=== PATIENT | male | born 1955 | race Caucasian/White ===

== ENCOUNTER 2017-01-09 10:27 | Inpatient (IN) ==
[2017-01-09 10:43] LABS: ABG Base Excess 0.2 MMOL/L (-2.5-2.5); ABG HCO3 24.7 MMOL/L (20-26); ABG Oxygen Saturation 99.7 % (95-100); ABG PH 7.395 (7.35-7.45); ABG TCO2 22.2 MMOL/L (23-27); Allen Test Positive; Pt O2 Delivery Device Ventilator
--- NOTE | 2017-01-09 10:44 | EKG Report ---
Stationary ECG Study [facility] Test Date: 01/09/2017 10:44:54 AM Pat Name: MADDISON BRASHER Department: Room: Gender: M Bond Underwriter: ROHINI Vogel : 1955 Requested by: Prince Mcneil Order Number: [id number] Reading MD: SARAH LUNDBERG Intervals [place] Rate: 82 P: 48 IA: 148 QRS: 70 QRSD: 90 T: 87 QT: 400 QTc: 438 Interpretive Statements SINUS RHYTHM Electronically Signed On 01-09-17 16:33:43 CDT by SARAH LUNDBERG [email or web address]
[2017-01-09] MEDS ORDERED: VECURONIUM 10 MG VIAL IV STA (10:49)
[2017-01-09] MEDS ORDERED: levETIRAcetam 500 MG/5 ML VIAL IV ONE (10:50)
[2017-01-09] MEDS ORDERED: VECURONIUM 10 MG VIAL IV ONE (10:50)
--- NOTE | 2017-01-09 10:51 | Emergency Department Note ---
Manoj Ivy Hilary, am scribing for, and in the presence of, Prince Mcdermott MD 10: 42. Sharron Ivy James D, MD, personally performed the services described in this documentation, ascribed by Meagan Aranda in my presence, and it is both accurate and complete . Arrival - Arrival Chief Complaint: Seizure ED Nursing Triage Note: pt had a sz this am and was taken to [facility]. pt was intubated at [facility] with a 7.5 and 24 at the lip Mode of Arrival: Stretcher Limitations: Altered Mental Status Source: EMS, RN Notes Reviewed - History of Present Illness HPI Narrative: Pt is a 61 y/o white male brought into the ED via EMS from [facility]. HPI is limited due to intubation. Per EMS he had a seizure witnessed by the family and never woke back up. Pt was intubated at [facility] [address] with a 7.5 and 24 at the lip. Pt has a PMHx of MA, CVA, and IDDM. Blood sugar was 31 on the scene and 271 reported in the ED. Onset (ago): hour(s) Allergies/Adverse Reactions: Allergies Allergy/AdvReac Type Severity Reaction Status Date / Time dexamethasone [From Decadron] Allergy Verified 02/11/15 15:47 Penicillins Allergy Verified 02/11/15 15:47 Home Medications: Home Medications Medication Instructions Recorded Confirmed Type Amlodipine Besylate/Benazepril 1 each PO DAILY 02/11/15 02/11/15 History [Lotrel 10-20 mg Capsule] Aspirin Tab 325 mg PO DAILY 02/11/15 02/11/15 History Carvedilol 3.125 mg PO DAILY 02/11/15 02/11/15 History Citalopram [CeleXA] 20 mg PO DAILY 02/11/15 02/11/15 History Gabapentin [Neurontin] 800 mg PO TID 02/11/15 02/11/15 History Insulin Glargine [Lantus] 70 unit SUBCUT BID 02/11/15 02/11/15 History Meloxicam 15 mg PO DAILY 02/11/15 02/11/15 History Review of System - Review of System ROS unobtainable: due to endotracheal tube 12 point system: reviewed and no additional remarkable complaints except as stated Medical,Surgical,& Family Hx - Medical History Cardio: History of: [place] (STENTS PLACED) Psychological: History of: Anxiety Disorders Neurology: History of: Cerebrovascular Accident (3 TIA'S WITHIN 3 MONTHS) Endocrine: History of: Diabetes Mellitus (IDDM) - Surgical History Thoracic Surgeries: Patient denies;: Organ Transplant - Family History Family History: Reports;: Family Cancer, Family Diabetes, Family Heart Disease - Social History Smoking Status: Unknown if ever smoked Frequency of Alcohol Use: Unknown Type of Drug Use: Unknown Exam Physical Examination: GENERAL: This is a well-nourished, well-developed 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 VITAL SIGNS: Temperature: 97.3 Pulse: 86 Respiratory: 18 Blood Pressure: 155/113 O2SAT: 100 Vital Signs: Vital Signs Temperature 97.2 F L 01/09/17 10:27 Pulse Rate 87 01/09/17 10:27 Respiratory Rate 18 01/09/17 10:43 Blood Pressure 155/118 01/09/17 10:27 O2 Sat by Pulse Oximetry 100 01/09/17 10:27 - General Exam limited due to: other (Intubated) Course Course Narrative: Patient was given Keppra in the emergency department along with some vecuronium. Patient was also placed on a Versed infusion per Results - Labs CBC & BMP: 01/09/17 10:56 Lab Results: I have reviewed the patients labs Labs: Labs performed at [facility] and reviewed by me: Basic metabolic panel: Glucose 307, BUN 13, creatinine 1.3, calcium 9.0, sodium 139, potassium 3.8, chloride 103, CO2 25, anion gap 14.6 Hepatic function panel: Total protein 7.4, albumin 2.7, total bili 0.20, direct bili less than 0.05, alkaline phosphatase 196, ALT 18, AST 22, globulin 4.7, A/ G ratio 0.6 CPK 239 CK-MB 2.3 myoglobin 309 Magnesium 1.5 CBC: WBCs 12,100, hemoglobin 13.4, hematocrit 39.5, platelet count 291,000 ABGs: PH 7.427, PCO2 35.2, PO2 204, FiO2 100% INR 0.96 - EKG EKG results: interpreted by ERMD - Impressions EKG: Normal sinus rhythm with a rate of 82, normal ST segments, normal T waves, normal axis. - Diagnostic Findings Procedure: Chest x-ray: image reviewed by me, CT: other (CT head performed at [facility] prior to transfer is reportedly negative for intracranial lesion or hemorrhage.) Disposition Clinical Impression: Seizure Disposition: Still a Patient Condition: Guarded Time of Disposition: 10:51
[2017-01-09] MEDS: MIDAZOLAM 100 MG in SODIUM CHLORIDE 0.9% 80 ML IV SCH (11:02)
[2017-01-09] MEDS: SODIUM CHLORIDE 0.9% 500 ML IV SCH ×2 (11:03→21:14)
[2017-01-09 11:11] LABS: Basophils % 0.4 % (0.0-0.8); Eosinophils # 0.1 10*3/uL (0.0-0.87); Eosinophils % 1.1 % (0.00-10.9); Hematocrit 36.7 VOL% (42.0-52.0); Hemoglobin 12.6 GM/DL (14.0-18.0); Immature Granulocytes % 0.6 %; Immature Granulocytes Absolute 0.05 #; Lymphocytes # 1.5 10*3/uL (1.4-4.0); Lymphocytes % 17.4 % (21.2-54.2); Mean Corpuscular HGB Conc 34.3 GM/DL (32-36); Mean Corpuscular Hemoglobin 28 PG (27-34); Mean Corpuscular Volume 81.6 FL (87-102); Mean Platelet Volume 9.1 FL (9.6-12.0); Monocytes # 0.5 10*3/uL (0.11-0.8); Monocytes % 6.2 % (1.7-12.7); Neutrophils # 6.3 10*3/uL (1.4-7.4); Neutrophils % 74.3 % (38.7-73.9); Platelet Count 208 T/CUMM (130-400); Red Cell Distribution Width 13.2 % (9.3-17.3); White Blood Count 8.4 T/CUMM (4-12)
[2017-01-09 11:13] LABS: Apearance,Urine CLEAR (Clear); Bacteria,Urine Occasional /HPF (Few); Bilirubin,Urine Negative (Negative); Blood, Urine Moderate mg/dL (Negative); Glucose,Urine (UA) >=500 mg/dL (Negative); Ketones,Urine Negative (Negative); Mucus,Urine Occasional /LPF (Occasional); Nitrite,Urine Negative (Negative); Protein,Urine 100 MG/DL; RBC,Urine 1 /HPF (0-4); Squamous Epithelial Cell,Urine Occasional /HPF (0-10); Urine Color Straw (Yellow); Urine Specific Gravity 1.012 (1.001-1.035); Urine Urobilinogen < 2.0 EU/DL (0.2-1.0); WBC,Urine 2 /HPF (0-6)
[2017-01-09 11:42] LABS: Alanine Aminotransferase 18 U/L (16-61); Albumin 2.8 G/DL (3.4-5.0); Alkaline Phosphatase 200 U/L (45-117); Aspartate Amino Transferase 24 U/L (0-37); Blood Urea Nitrogen 13 MG/DL (7-18); Calcium 8.7 MG/DL (8.5-10.1); Glucose 296 MG/DL (74-106); Magnesium 1.9 MG/DL (1.8-2.4); Potassium 4.2 MMOL/L (3.5-5.1); Sodium 136 MMOL/L (136-145); Total Protein 7.2 G/DL (6.4-8.3)
[2017-01-09 11:44] LABS: Barbiturates Screen,Urine Negative (Negative); Benzodiazepines Screen,Urine Positive (Negative); Cannabinoid Screen,Urine Negative (Negative); Opiate Screen,Urine Negative (Negative); Phencyclidine Screen,Urine Negative (Negative)
--- NOTE | 2017-01-09 11:46 | Hospitalist History & Physical ---
Assessment and Plan - Time spent with patient Time spent with patient: Greater than 30 minutes (1) Chronic wound of extremity Status: Acute Assessment and plan: Mr. Lujan is a 61-year-old white male with history of hypertension, CAD, hyperlipidemia, CVA, and chronic wounds admitted by hospitalist service has a transfer from [facility] with seizure-like activity and respiratory failure requiring intubation. Patient is being admitted to ICU by Dr. Kwan. Patient will be sedated on the vent, pulmonary and neurology will be consulted. His home medicines that are needed will be restarted. Patient's blood sugars will be monitored and put on sliding scale insulin. Patient has multiple scans and labs that are still pending. Dr. Kwan we will see and examine patient and further recommendations to follow. Current Visit: Yes (2) Status post amputation of right foot Status: Acute Current Visit: Yes (3) Respiratory failure requiring intubation Status: Acute Current Visit: Yes (4) Diabetes Status: Acute Current Visit: No (5) Hypertension Status: Acute Current Visit: No (6) Coronary artery disease Status: Acute Current Visit: No (7) Seizure Status: Acute Current Visit: Yes History of Present Illness Chief complaint: Seizure-like activity History of present illness: Mr. Anderson is a 61 year old male with history of coronary artery disease, diabetes, hypertension, hyperlipidemia, CVA, and chronic wounds presenting to the ED as a transfer from [facility] with seizure-like activity followed by respiratory failure requiring intubation. Patient's , son, and daughter are all in the room and can give accurate history. Patient had recent midfoot amputation done by Dr. Mckeon on his right foot on November 13 and patient has been undergoing IV infusion with Cubicin and Invanz since then. states starting sunday patient started acting confused and she was worried he was having another stroke. His balance has been off because of his chronic wounds on his feet and he has been falling a lot lately. She states he fell on Sunday and they thought he broke his right arm. He continued to act confused and was complaining of frontal forehead headache and so she took him to the ER last night at [facility] and she states the CT scan was negative for any acute process. She says they gave him some pain medicine and sent him home and he started acting normal. The daughter and son state when he woke up this morning he was acting okay, sitting on the edge of the couch. He then fell backwards multiple times and then started shaking and they grabbed his tongue so he would not swallow it. They both took turns providing CPR. When the paramedics arrived the patient had a pulse and was breathing via facemask. Patient was intubated at the ED at [facility] and transferred here for further care. Patient is sedated on the vent, afebrile and his blood pressure is elevated at 155/118. Patient's white count is normal, H&H stable at 12.6/36.7, blood glucose is 271 , UA is negative. Patient's foot wound is clean with no signs of infection. After discussion with Dr. Mcdermott the ED physician and Dr. Kwan the hospitalist, it was decided patient would be admitted for further evaluation. Home Medications Medication Instructions Recorded Confirmed Type Amlodipine Besylate/Benazepril 1 each PO DAILY 02/11/15 02/11/15 History [Lotrel 10-20 mg Capsule] Aspirin Tab 325 mg PO DAILY 02/11/15 02/11/15 History Carvedilol 3.125 mg PO DAILY 02/11/15 02/11/15 History Citalopram [CeleXA] 20 mg PO DAILY 02/11/15 02/11/15 History Gabapentin [Neurontin] 800 mg PO TID 02/11/15 02/11/15 History Insulin Glargine [Lantus] 70 unit SUBCUT BID 02/11/15 02/11/15 History Meloxicam 15 mg PO DAILY 02/11/15 02/11/15 History Allergies Allergy/AdvReac Type Severity Reaction Status Date / Time dexamethasone [From Decadron] Allergy Verified 02/11/15 15:47 Penicillins Allergy Verified 02/11/15 15:47 Medical,Surgical,& Family Hx - Medical History Cardio: History of: [place] (STENTS PLACED) Psychological: History of: Anxiety Disorders Neurology: History of: Cerebrovascular Accident (3 TIA'S WITHIN 3 MONTHS), Seizures Endocrine: History of: Diabetes Mellitus (IDDM) - Surgical History Thoracic Surgeries: Patient denies;: Organ Transplant Abdominal Surgeries: Surgical HX of: Cholecystectomy Orthopedic Surgeries: Surgical HX of;: Orthopedic Surgery - Family History Family History: Reports;: Family Cancer, Family Diabetes, Family Heart Disease - Social History Smoking Status: Unknown if ever smoked Frequency of Alcohol Use: Unknown Type of Drug Use: Unknown Marital Status: Lives With:: Spouse Functional capacity: independent ambulation ROS unobtainable: due to endotracheal tube Exam - Constitutional Vitals: Period Temp Pulse Resp BP Sys/Morrison Pulse Ox Last 24 Hr 97.2 F-97.2 F 86-87 18-18 155-155/113-118 100 Exam: Constitutional System: No distress. No tremulousness. Head: Normocephalic, atraumatic. Ears, Nose and Throat System: No evidence of Otitis or Mastoiditis. No epistaxis or discharge Eyes System: Pupils equal, round, and reactive. Extraocular muscles intact. Neck: Supple, without adenopathy, No jugular venous distention. No thyromegaly, neck mass, or prior surgery apparent. Respiratory System: Chest clear to auscultation. Cardiovascular System: Heart with regular rate and rhythm. No murmur. GI System: Abdomen soft. Normo active bowel sounds present. Musculoskeletal System: limbs with no pedal edema. Full distal pulses. Well- healed first toe amputation site on the left foot, clean wound from toe amputations 1 month ago. Neurological System: Unable to determine sensory deficit. Unable to determine aphasia Psychiatric System: Conversation is unable to determine Results - Labs CBC & BMP: 01/09/17 10:56 Lab Results: I have reviewed the past 24 hour labs - EKG EKG results: sinus rhythm
[2017-01-09] MEDS ORDERED: ONDANSETRON 4 MG/2 ML VIAL IV PRN (12:25)
[2017-01-09] MEDS ORDERED: MORPHINE 2 MG/1 ML SYRINGE IV PRN (12:25)
[2017-01-09] MEDS: PROPOFOL 1,000 MG/100 ML BOTTLE IV SCH ×2 (13:00→22:08)
[2017-01-09] MEDS: ENOXAPARIN 40 MG/0.4 ML SYRINGE SUBCUT SCH (14:32)
[2017-01-09] MEDS: ASPIRIN 325 MG TABLET PER TUBE SCH (14:32)
[2017-01-09] MEDS: GABAPENTIN 600 MG TABLET PO SCH ×2 (14:32→21:12)
[2017-01-09] MEDS: LEVOFLOXACIN INJ 500 MG in PREMIX 1 EACH IV SCH (14:33)
[2017-01-09] MEDS: SODIUM HYPOCHLORITE 0.25% IRRIG 473 ML BOTTLE TOP SCH (14:33)
[2017-01-09] MEDS: CHLORHEXIDINE 4% SOLN 118 ML BOTTLE TOP SCH (14:33)
--- NOTE | 2017-01-09 16:18 | Neurology Consult Note ---
History of Present Illness History of present illness: Mr. Lujan is a 61-year-old white male with history of hypertension, CAD, hyperlipidemia, CVA, and chronic wounds admitted by hospitalist service as a transfer from [facility] with seizure-like activity and respiratory failure requiring intubation. Patient is being admitted to ICU. Patient is sedated on the vent. He has been started on Keppra. Patient has multiple scans and labs that are still pending. Patient is waking up some when he is off of sedation. At the time of seizure his blood sugar was in 30s. Home Medications Medication Instructions Recorded Confirmed Type Amlodipine Besylate/Benazepril 1 each PO DAILY 02/11/15 02/11/15 History [Lotrel 10-20 mg Capsule] Aspirin Tab 325 mg PO DAILY 02/11/15 02/11/15 History Carvedilol 3.125 mg PO DAILY 02/11/15 02/11/15 History Citalopram [CeleXA] 20 mg PO DAILY 02/11/15 02/11/15 History Gabapentin [Neurontin] 800 mg PO TID 02/11/15 02/11/15 History Insulin Glargine [Lantus] 70 unit SUBCUT BID 02/11/15 02/11/15 History Meloxicam 15 mg PO DAILY 02/11/15 02/11/15 History Allergies Allergy/AdvReac Type Severity Reaction Status Date / Time dexamethasone [From Decadron] Allergy Verified 02/11/15 15:47 Penicillins Allergy Verified 02/11/15 15:47 ROS unobtainable: due to endotracheal tube Medical,Surgical,& Family Hx - Medical History Cardio: History of: Hypertension, [place] (STENTS PLACED) Psychological: History of: Anxiety Disorders, Depression Neurology: History of: Cerebrovascular Accident (3 TIA'S WITHIN 3 MONTHS), TIA No history of: Seizures ( states pt "does not have a history of seizures ") HEENT: History of: Ear Problem (hard of hearing), Dental Problems (edentulous) Endocrine: History of: Diabetes Mellitus (IDDM) Respiratory: History of: Intubation Genitourinary: History of: Prostate Problems - Surgical History Cardiac Surgeries: Sugical HX of: Cardiac Catheterization Thoracic Surgeries: Patient denies;: Organ Transplant Abdominal Surgeries: Surgical HX of: Cholecystectomy Orthopedic Surgeries: Surgical HX of;: Orthopedic Surgery (right shoulder) - Family History Family History: Reports;: Family Cancer, Family Diabetes, Family Heart Disease, Family Stroke (grandfather) - Social History Smoking Status: Unknown if ever smoked Frequency of Alcohol Use: Unknown Type of Drug Use: Unknown Exam - Constitutional Vitals: Period Temp Pulse Resp BP Sys/Morrison Pulse Ox Last 24 Hr 14-18 Exam: GENERAL: Patient is in no acute distress. NECK: Neck is supple. There is no JVD. No carotid bruits present. No thyroid masses. CVS: First and second heart sounds are normal. There is no S3 present. Regular rate and rhythm. RESPIRATORY: Lungs are clear to auscultation without any rales or rhonchi. ABDOMEN: Soft and non-tender. Bowel sounds are present. There is no hepatosplenomegaly. EXT: There is no palpable edema. Peripheral pulses are present. Skin: No rashes Central Nervous system: General: Sedated on vent Speech: None Comprehension: None Facial expressions: Normal Cranial Nerves: Pupils are small and sluggish reactive. Doll's head I moves are positive. No facial asymmetry is seen. Motor: Bulk and Tone is normal. Strength cannot be assessed Sensory: Cannot be assessed Reflexes: 1+ and symmetrical Cerebellar function: Cannot be assessed Toes: Equivocal Gait: Cannot be assessed Results - Labs CBC & BMP: 01/09/17 10:56 01/09/17 10:56 Assessment and Plan (1) Seizure Status: Acute Assessment and plan: Seizure may very well be hypoglycemia induced. Continue Kekalinara for now Will review EEG Perform CT head if it is not done Current Visit: Yes
--- NOTE | 2017-01-09 20:38 | Electroencephalogram ---
HISTORY: A 61-year-old patient with a history of seizure. INTRODUCTION: A digital EEG was performed using the standard 10/20 system of electrode placement wi th one channel of EKG monitoring. Photic stimulation and hyperventilation are performed. DESCRIPTION OF RECORD: The background is somewhat disorganized, consists of 7 to 8 hertz low ampl itude bilateral symmetrical rhythm. Photic stimulation elicits a driving response at all flash freq uencies. Hyperventilation was not performed. There are no focal, sharp-wave, spike or wave activit y seen. Heart rate 56 beats per minute. IMPRESSION: ABNORMAL EEG DUE TO MILD GENERALIZED SLOWING. CLINICAL CORRELATION: This record is supportive of mild encephalopathy, which could be secondary to postictal state, posthypoxic state, metabolic disorder, diffuse INNER DIAMETER GRINDER TOOL insult, or increased intracrani al pressure. No epileptiform/seizure activity seen. Clinical correlation is suggested.
[2017-01-09] MEDS: INSULIN GLARGINE 100 UNIT/ML SUBCUT SCH (21:12)
[2017-01-09] MEDS: CARVEDILOL 3.125 MG TABLET PER TUBE SCH (21:12)
[2017-01-10] MEDS: INSULIN LISPRO 100 UNIT/ML SUBCUT SCH ×4 (01:25→17:13)
[2017-01-10] MEDS: PROPOFOL 1,000 MG/100 ML BOTTLE IV SCH ×3 (03:15→11:49)
[2017-01-10 03:28] LABS: ABG Base Excess 2.6 MMOL/L (-2.5-2.5); ABG HCO3 25.8 MMOL/L (20-26); ABG Oxygen Saturation 98.7 % (95-100); ABG PH 7.486 (7.35-7.45); ABG PO2 233.5 MM HG (80-95); ABG TCO2 26.9 MMOL/L (23-27); Allen Test Positive; Pt O2 Delivery Device Ventilator
[2017-01-10 05:00] LABS: Basophils % 0.4 % (0.0-0.8); Eosinophils # 0.1 10*3/uL (0.0-0.87); Eosinophils % 1.9 % (0.00-10.9); Hematocrit 30.9 VOL% (42.0-52.0); Hemoglobin 10.5 GM/DL (14.0-18.0); Immature Granulocytes % 0.3 %; Immature Granulocytes Absolute 0.02 #; Lymphocytes # 2.7 10*3/uL (1.4-4.0); Lymphocytes % 35.2 % (21.2-54.2); Mean Corpuscular Hemoglobin 28 PG (27-34); Mean Corpuscular Volume 82.4 FL (87-102); Mean Platelet Volume 9.7 FL (9.6-12.0); Monocytes # 0.6 10*3/uL (0.11-0.8); Monocytes % 7.5 % (1.7-12.7); Neutrophils # 4.1 10*3/uL (1.4-7.4); Neutrophils % 54.7 % (38.7-73.9); Platelet Count 199 T/CUMM (130-400); Red Blood Count 3.75 MC/CUMM (3.8-5.5); Red Cell Distribution Width 13.7 % (9.3-17.3); White Blood Count 7.6 T/CUMM (4-12)
[2017-01-10 05:40] LABS: Blood Urea Nitrogen 12 MG/DL (7-18); Calcium 8.8 MG/DL (8.5-10.1); Glucose 143 MG/DL (74-106); Osmolality,Calculated 280.4 MOS/KG (273-304); Potassium 3.6 MMOL/L (3.5-5.1); Sodium 140 MMOL/L (136-145); Troponin I Only < 0.015 NG/ML (0.00-0.045)
--- NOTE | 2017-01-10 07:57 | XRay Report ---
Referring Physician: Dk Kwan Exam: XR chest 1V portable Date: January 10, 2017 at 3:31 AM Reason: Respiratory failure Comparison: None Findings: An endotracheal tube is in place with its distal tip at the level of the sternoclavicular junctions, projecting 3.5 cm above the chanell. A feeding tube is seen extending into the stomach and beyond the [id number]. The cardiac silhouette is upper normal in size. There are minimal scattered opacities within both lower lung zones. This is most consistent with atelectasis. No pneumothorax or pleural effusion is identified. No acute osseous process is seen. Impression: Minimal scattered atelectasis within both lower lung zones. PROCEDURE INTERPRETED AT [facility] DEPARTMENT OF RADIOLOGY Final Report Signed by: Dr. Robinson Alberts
--- NOTE | 2017-01-10 07:59 | CT Report ---
History: Seizure activity. Recent fall Date: 01/10/2017 Study: CT head without contrast Comparison exam: No previous similar available Transaxial CT sections were obtained through the head without IV contrast. This CT exam was performed using one or more the following dose reduction techniques: Automated exposure control, adjustment of the MA and/or KV according to patient size, or use of iterative reconstruction technique. There is no acute abnormality of the calvarium. There is mild to moderate mucosal thickening in the sphenoid sinuses, more so on the right. The ventricles are midline in position without evidence of hydrocephalus. There is mild cerebral atrophy. There is no acute parenchymal hemorrhage or area of mass effect. There is no gross CT evidence of acute cortical stroke. There is a wedge-shaped area of decreased density compatible with late subacute or chronic infarct in the left parietal lobe, measuring 17 mm. There is chronic infarction measuring as large as 22 mm in the right cerebellar hemisphere. There is patchy decreased density in the periventricular white matter without mass effect compatible with changes of periventricular small vessel disease. Areas of previous lacunar infarction noted in either robert radiata as well as in the thalamus. There is no acute extra-axial hematoma. Impression: No definite acute intracranial process. Chronic ischemic changes. Periventricular small vessel disease. Sphenoid sinusitis which may be chronic or allergic PROCEDURE INTERPRETED AT [facility] DEPARTMENT OF RADIOLOGY Final Report Signed by: Dr. Callie Portillo
[2017-01-10] MEDS: PANTOPRAZOLE 40 MG TABLET PO SCH ×2 (08:00→09:42)
[2017-01-10] MEDS: GABAPENTIN 600 MG TABLET PO SCH ×4 (08:00→20:08)
[2017-01-10] MEDS: INSULIN GLARGINE 100 UNIT/ML SUBCUT SCH ×2 (08:00→09:42)
[2017-01-10] MEDS: CARVEDILOL 3.125 MG TABLET PER TUBE SCH ×3 (08:00→20:08)
[2017-01-10] MEDS: ASPIRIN 325 MG TABLET PER TUBE SCH ×2 (08:01→09:42)
[2017-01-10] MEDS: SODIUM CHLORIDE 0.9% 500 ML IV SCH ×2 (08:01→17:12)
[2017-01-10] MEDS: SODIUM HYPOCHLORITE 0.25% IRRIG 473 ML BOTTLE TOP SCH (08:01)
[2017-01-10] MEDS: CHLORHEXIDINE 4% SOLN 118 ML BOTTLE TOP SCH (08:59)
[2017-01-10] MEDS: MIDAZOLAM 100 MG in SODIUM CHLORIDE 0.9% 80 ML IV SCH (10:51)
[2017-01-10] MEDS: ENOXAPARIN 40 MG/0.4 ML SYRINGE SUBCUT SCH (12:00)
[2017-01-10] MEDS: LEVOFLOXACIN INJ 500 MG in PREMIX 1 EACH IV SCH (12:00)
--- NOTE | 2017-01-10 12:50 | Hospitalist Progress Note ---
Assessment and Plan (1) Seizure Status: Acute Assessment and plan: 1)resp failure- resolved. extubated 2)seizure- etiology still unclear- continue Dr Clint Fischer seeing him. serial neuro exams, consider MRI to rule out stroke. 3)DM- he has no idea how much insulin he is supposed to take and only takes it sometimes. diabetes education, SSI, 10U lantus at night. diabetic diet 4)HTN- on coreg 5)ID- on levaquin for infection? nurse to get record of antibiotics given at infusion center 6)watch in CCU but if does well can move to floor soon. Current Visit: Yes (2) Diabetes Status: Acute Current Visit: No (3) Hypertension Status: Acute Current Visit: No (4) Respiratory failure requiring intubation Status: Acute Current Visit: Yes Hospitalist: Subjective Interval history: MR Anderson did well on vent overnight and was able to be extuabted this morning. He is not able to tell me when he last took insulin.His thinks it ahs been a very long time, and doubts that he was hypoglycemic at home. The story from the outside ER is that his glucose was 31 at the scene then 270s in their ER after it was treated, but that was the verbal report- I can't find that written anywhere on the outside ER chart. Their report says he was seizing and then intubated. No siezure activity here. On Keppra. able to talk and answer some questions. Holds his right arm still because it hurts to move it since a recent fall at home- has appt with ortho to find out if he broke it. Has been going to the infusion center in for his foot following amputation of great toe a month ago, has 2 weeks left. concerned that even before the seizure he had slurred speech and confusion. Nurse trying to track down the EMS report from scene. Exam - Constitutional Vitals: Period Temp Pulse Resp BP Sys/Morrison Pulse Ox Last 24 Hr 97.8 F-98.9 F 67-103 12-22 111-151/75-106 92-100 General appearance: no acute distress, over weight - Eye Eye exam: Present: EOMI. Absent: scleral icterus Pupils: Present: JAMES - Respiratory Respiratory exam: Present: clear to auscultation bilaterally - Cardiovascular Cardiovascular exam: Present: regular rate and rhythm - GI/Abdominal GI/Abdominal exam: Present: normal bowel sounds, soft. Absent: tenderness - Extremities Exam Extremities exam: Present: other (TMR on right and great toe amputated on left, healing well.). Absent: edema - Neurological Exam Neurological exam: Present: alert, oriented X3, CN II-XII intact. Absent: motor sensory deficit (holds right arm still due to pain he says) - Skin Skin exam: Present: warm, dry Results - Labs CBC & BMP: 01/10/17 03:51 01/10/17 03:51 Lab Results: I have reviewed the past 24 hour labs
--- NOTE | 2017-01-10 14:26 | XRay Report ---
XR orbits for mri Indication: MRI clearance. Orbits 2 views: No metallic debris is identified within the soft tissues of the face. Impression: No relative contraindication MRI. PROCEDURE INTERPRETED AT [facility] DEPARTMENT OF RADIOLOGY Final Report Signed by: Redd Charles M.D.
[2017-01-10] MEDS ORDERED: hydrALAZINE 20 MG/1 ML VIAL IV PRN (15:26)
--- NOTE | 2017-01-10 16:35 | Event Note ---
Patient gone for MRI
--- NOTE | 2017-01-10 17:20 | Magnetic Resonance Report ---
Referring physician: Colette Sarkar Exam: MRI brain without contrast Date: January 10, 2017 Comparison: CT brain without contrast January 10, 2017 Reason: New seizure, slurred speech The patient is an inpatient who was admitted on January 09, 2017. Technique: MRI of the brain was performed without the use of contrast. Obtained images include sagittal T1, axial diffusion-weighted, axial FLAIR, axial T2, sagittal T2* and axial T1 sequences. A 1.5 Jazmyne magnet was used. Findings: Motion artifact is present and degrades the quality of the study. There is a moderate size area of diffusion restriction with corresponding T2/FLAIR hyperintensity in the left temporal occipital region. This involves both the cortex and subcortical white matter and is concerning for an acute infarction. 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 There is mild generalized cerebral and cerebellar atrophy/volume loss. Scattered areas of T2/FLAIR hyperintensity are seen within the cerebral white matter bilaterally. This is nonspecific but likely represents mild to moderate chronic microvascular ischemic change. Less common considerations included a demyelinating process, vasculitis, viral process or Lyme disease. Remote lacunar infarctions are suspected within the robert radiata bilaterally and within the left thalamus. There is also a small remote infarction within the right cerebellum, and there may be a remote lacunar infarction within the right rocky. The ventricles are mildly prominent, likely secondary to central atrophy/volume loss. No midline shift is seen. There is no evidence of recent intracranial hemorrhage. Major vascular flow voids are unremarkable as visualized. The orbits are unremarkable as visualized. There is T1 hyperintensity in the region of the pituitary stalk. This could represent an ectopic pituitary bright spot or small lipoma. It measures 0.5 cm. There is scattered mucosal thickening within the maxillary sinuses and sphenoid sinuses, mainly on the right. The mastoid air cells appear clear, but motion artifact limits evaluation. Impression: 1. There is a moderate size area of acute infarction in the left temporal occipital region. 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 2. Mild generalized cerebral and cerebellar atrophy/volume loss and probable chronic microvascular ischemic change. 3. Motion artifact is present and limits evaluation. 4. There are probable remote lacunar infarctions within the bilateral robert radiata, left thalamus and possibly within the right rocky. There is also a small remote infarction within the right cerebellum. 5. A 0.5 cm oval T1 hyperintense area is seen in the expected region of the pituitary stalk. This may represent an ectopic pituitary bright spot or small lipoma. Findings were discussed with Dr. Sarkar on January 10, 2017 at 5:15 PM. This is a critical test. PROCEDURE INTERPRETED AT [facility] DEPARTMENT OF RADIOLOGY Final Report Signed by: Dr. Robinson Alberts
--- NOTE | 2017-01-10 20:00 | Ultrasound Report ---
Indication: Stroke, edema Duplex scan of the bilateral lower extremity veins Technique: Duplex scan of the bilateral lower extremity veins using B-mode/grayscale imaging and Doppler spectral analysis and color flow Findings: Major venous structures of the bilateral lower extremity demonstrate a normal course and caliber. There is no evidence of deep vein thrombosis. No abnormal intrinsic echogenic lesions are demonstrated in the scanned blood vessels. Veins demonstrate good compressibility with normal color flow study and spectral analysis. Impression: Unremarkable duplex imaging of the bilateral lower extremity veins. No evidence of DVT PROCEDURE INTERPRETED AT [facility] DEPARTMENT OF RADIOLOGY Final Report Signed by: Matthew Lopez
--- NOTE | 2017-01-10 20:33 | Ultrasound Report ---
Exam: US carotid duplex BI Date: 01/10/2017 5:21 PM Indication: Stroke, infarct Technique: Duplex scan of the bilateral carotid arteries using B-mode/grayscale imaging and Doppler spectral analysis and color flow. Findings: Right Flow velocities centimeters per second Common carotid artery: 76 Proximal ICA: 96 Distal ICA: 84 External carotid artery: 75 Vertebral artery: 29 with antegrade flow ICA/CCA ratio: 1.3 Measurements in millimeters Distal ICA: 5.2 Left: Flow velocities centimeters per second Common carotid artery: 100 Proximal ICA: 87 Distal ICA: 82 External carotid artery: 247 Vertebral artery: 72 with antegrade flow ICA/CCA ratio: 0.9 Measurements in millimeters Distal ICA: 5.9 No significant atherosclerotic plaque or luminal stenosis is evident within either internal carotid artery. Color flow is present in all visualized vessels with Doppler analysis. Impression: 1. Minimal scattered atherosclerotic plaque is noted within the distal common carotid arteries and internal carotid arteries bilaterally with no significant luminal stenosis suggested by ultrasound criteria within either internal carotid artery. 2. Suggestion of at least moderate proximal stenoses at both external carotid arteries, which is of uncertain significance. Today studies were performed utilizing indirect NASCET criteria The ultrasound images were stored and captured PROCEDURE INTERPRETED AT [facility] DEPARTMENT OF RADIOLOGY Final Report Signed by: Matthew Lopez
--- NOTE | 2017-01-10 23:10 | XRay Report ---
XR humerus RT, 2 views; XR shoulder 2V RT Clinical Information: fell, rumor of fracture, Pain Comparison: None available Findings: Shoulder joint is intact. There is no evidence of glenohumeral joint dislocation. Acromioclavicular joint demonstrates mild degenerative changes. There is also near complete loss of the subacromial interval, which is most compatible with chronic rotator cuff injury/tear. The humerus is also intact with no evidence of acute fracture. No suspicious osseous or soft tissue lesions are identified. Impression: No acute findings. Degenerative changes as detailed above. PROCEDURE INTERPRETED AT [facility] DEPARTMENT OF RADIOLOGY Final Report Signed by: Matthew Lopez
[2017-01-11] MEDS: INSULIN LISPRO 100 UNIT/ML SUBCUT SCH ×4 (00:32→18:32)
[2017-01-11] MEDS: SODIUM CHLORIDE 0.9% 500 ML IV SCH ×2 (04:50→20:47)
[2017-01-11 05:32] LABS: Calcium 8.5 MG/DL (8.5-10.1); Potassium 3.5 MMOL/L (3.5-5.1); Risk Ratio 8.31; VLDL CHOLESTEROL 106.2 MG/DL
[2017-01-11] MEDS: PANTOPRAZOLE 40 MG TABLET PO SCH (08:18)
[2017-01-11] MEDS: ASPIRIN 325 MG TABLET PER TUBE SCH (08:18)
[2017-01-11] MEDS: GABAPENTIN 600 MG TABLET PO SCH ×3 (08:18→22:10)
[2017-01-11] MEDS: SODIUM HYPOCHLORITE 0.25% IRRIG 473 ML BOTTLE TOP SCH (08:19)
[2017-01-11] MEDS: CHLORHEXIDINE 4% SOLN 118 ML BOTTLE TOP SCH (08:19)
[2017-01-11] MEDS: CARVEDILOL 12.5 MG TABLET PO SCH ×2 (08:20→22:10)
--- NOTE | 2017-01-11 09:28 | Neurology Progress Note ---
Neurology - PN : Subjective Interval history: Patient seems to be doing better. He is extubated yesterday. MRI of the brain revealed acute left MCA distribution infarct. He is on multiple antibiotics including Cubicin Exam (Progress Note) - Constitutional Vitals: Period Temp Pulse Resp BP Sys/Morrison Pulse Ox Last 24 Hr 98.2 F-98.7 F 74-94 12-23 114-168/61-115 92-97 Exam: GENERAL: Patient is in no acute distress. NECK: Neck is supple. There is no JVD. No carotid bruits present. No thyroid masses. CVS: First and second heart sounds are normal. There is no S3 present. Regular rate and rhythm. RESPIRATORY: Lungs are clear to auscultation without any rales or rhonchi. ABDOMEN: Soft and non-tender. Bowel sounds are present. There is no hepatosplenomegaly. EXT: There is no palpable edema. Peripheral pulses are present. Skin: No rashes Central Nervous system: General: Alert and awake Speech: Fluent Comprehension: Fair Facial expressions: Normal Cranial Nerves: Pupils are small and sluggish reactive. Extraocular movements are intact. No facial asymmetry seen Motor: Bulk and Tone is normal. Strength mild right hemiparesis Sensory: Unreliable Reflexes: 1+ and symmetrical Cerebellar function: Slow finger to nose testing Toes: Equivocal Gait: Not tested Results - Labs CBC & BMP: 01/10/17 03:51 01/11/17 04:39 Assessment and Plan (1) Seizure Status: Acute Assessment and plan: Seizure may very well be hypoglycemia induced. Continue Keppra for now Current Visit: Yes (2) Acute CVA (cerebrovascular accident) Status: Acute Assessment and plan: Start Eliquis 5 mg p.o. twice daily Stop Lovenox Consider [facility]ency placement at this point Current Visit: Yes
[2017-01-11] MEDS: LEVOFLOXACIN INJ 500 MG in PREMIX 1 EACH IV SCH (12:56)
--- NOTE | 2017-01-11 13:53 | Hospitalist Progress Note ---
Assessment and Plan (1) Seizure Status: Acute Assessment and plan: 1)resp failure- resolved. extubated 2)seizure- etiology still unclear- continue Dr Clint Fischer seeing him. serial neuro exams, consider MRI to rule out stroke. 3)DM- he has no idea how much insulin he is supposed to take and only takes it sometimes. diabetes education, SSI, 10U lantus at night. diabetic diet 4)HTN- on coreg 5)ID- on levaquin for infection? nurse to get record of antibiotics given at infusion center 6)watch in CCU but if does well can move to floor soon. Current Visit: Yes (2) Diabetes Status: Acute Current Visit: No (3) Hypertension Status: Acute Current Visit: No (4) Respiratory failure requiring intubation Status: Acute Current Visit: Yes Hospitalist: Subjective Interval history: Mr Anderson did well after extubation and is ready for transfer to the floor. He had an MRI which shows an acute stroke on the left. He has not had any seizures. He needs somewhere to go for rehab where he can comtinie to receive the antibiotics he was on as an outpatient. Exam - Constitutional Vitals: Period Temp Pulse Resp BP Sys/Morrison Pulse Ox Last 24 Hr 97.8 F-98.6 F 71-94 12-23 114-184/61-115 92-99 General appearance: no acute distress, over weight - Eye Eye exam: Present: EOMI Pupils: Present: JAMES - Respiratory Respiratory exam: Present: clear to auscultation bilaterally - Cardiovascular Cardiovascular exam: Present: regular rate and rhythm - Neurological Exam Neurological exam: Present: alert, motor sensory deficit (right arm and leg weak though he follows commands) Results - Labs CBC & BMP: 01/10/17 03:51 01/11/17 04:39
--- NOTE | 2017-01-11 13:54 | Quality Management ---
The patient's LDL is 133. Please order the appropriate medication or provide a contraindication PRIOR to discharge. To complete this task, you will need to order the medication OR provide a contraindication utilizing the Order Management screen. DO NOT ORDER OR PROVIDE CONTRAINDICATIONS WITHIN THIS QUERY. THIS IS A MEANINGFUL USE REQUIREMENT! Thank you, Phuong Hubbard, RN Clinical Color Maker W [phone] [facility]
--- NOTE | 2017-01-11 14:09 | ECHO Report ---
JustinNoah knowles Exam Date: 01/11/2017 08:09 Referring Physician: Technologist: Elo Reno Age: 61 Ht (in): 65 Wt (lb): 223 Gender: M Exam Location: [facility] Echo Indications: Resp. failure, seizure, CAD, HTN BP: 160 / 78 HR: 80 Rhythm: Sinus Technical Quality: IMPRESSIONS Left ventricular ejection fraction is estimated at 50- 55 %. Mild concentric left ventricular hypertrophy with mild diastolic dysfunction. Mild mitral valve sclerosis and leaflet thickening. Mild mitral valve regurgitation. Mild aortic valve sclerosis without stenosis. Trace tricuspid valve regurgitation. MEASUREMENTS (Male / Female) Normal Values 2D ECHO LV Diastolic Diameter PLAX 4.9 cm 4.2 - 5.9 / 3.9 - 5.3 cm LV Systolic Diameter PLAX 2.6 cm LV Fractional Shortening PLAX 47.6 % IVS Diastolic Thickness 1.7 cm 0.6 - 1.0 / 0.6 - 0.9 cm LVPW Diastolic Thickness 1.6 cm 0.6 - 1.0 / 0.6 - 0.9 cm RV Internal Dim ED PLAX 3.1 cm Aortic Root Diameter 3.1 cm LA Systolic Diameter LX 3.4 cm 3.0 - 4.0 / 2.7 - 3.8 cm DOPPLER TR Peak Velocity 221.0 cm/s TR Peak Gradient 19.5 mmHg FINDINGS Left Ventricle Normal left ventricular cavity size. Mild concentric left ventricular hypertrophy with mild diastolic dysfunction. Left ventricular ejection fraction is estimated at 50- 55 %. Right Ventricle Grossly normal right ventricular size. Right Atrium Normal right atrial size. Left Atrium Normal left atrial size. Mitral Valve Mild mitral valve sclerosis and leaflet thickening. Mild mitral valve regurgitation. Aortic Valve Mild aortic valve sclerosis without stenosis. Tricuspid Valve Morphologically normal tricuspid valve. Trace tricuspid valve regurgitation. Tricuspid regurgitation velocities suggest a PAP of 19.5 mmHg + RAP. Pulmonic Valve Pulmonic valve not well visualized. Pericardium No pericardial effusion. Aorta Normal size aortic root and proximal ascending aorta. Stan Rahman (Electronically Signed) Final Date: 11 Jan 2017 14:08
[2017-01-11] MEDS: ERTAPENEM 1,000 MG in SODIUM CHLORIDE 0.9% 100 ML IV SCH (15:05)
--- NOTE | 2017-01-11 17:37 | Orthopedic Consult Note ---
History of Present Illness Chief complaint: Right shoulder pain History of present illness: Mr. Anderson is a 61 year old male who reportedly fell off a porch last week injuring his right arm and shoulder either also was noted to have had a minor CVA is currently on the medical service and I have been asked about regarding his persistent right shoulder pain he does have a history of surgery performed for several years ago by Dr. starkey related to his right shoulder and rotator cuff he does report that he has had some chronic pain issues related to that shoulder and has an appointment to see him in the near future. Examination well-developed nourished male the right shoulder reveals some postoperative changes small scars consider with arthroscopy and an open repair. He tolerates range of motion active and active assisted essentially full without any pain or crepitation is to close the shoulder and elbow X-rays right shoulder numerous I do not see any acute change or subacromial narrowing consistent with early cuff arthropathy Impression: Right shoulder pain improved, rotator cuff arthropathy Plan: Patient may advance with activity as tolerated if he has no further complaints or worsening symptoms regarding his shoulder is to follow up with Dr. starkey his orthopedic surgeon Home Medications Medication Instructions Recorded Confirmed Type Amlodipine Besylate/Benazepril 1 each PO DAILY 02/11/15 01/09/17 History [Lotrel 10-20 mg Capsule] Aspirin Tab 325 mg PO DAILY 02/11/15 02/11/15 History Carvedilol 3.125 mg PO DAILY 02/11/15 01/09/17 History Citalopram [CeleXA] 20 mg PO DAILY 02/11/15 01/09/17 History Gabapentin [Neurontin] 800 mg PO TID 02/11/15 02/11/15 History Insulin Glargine [Lantus] 70 unit SUBCUT BID 02/11/15 01/09/17 History Meloxicam 15 mg PO DAILY 02/11/15 01/09/17 History busPIRone [Buspar] 5 mg PO BID 01/09/17 01/09/17 History hydrOXYzine HCl [Hydroxyzine HCl] 25 mg PO TID 01/09/17 01/09/17 History Allergies Allergy/AdvReac Type Severity Reaction Status Date / Time dexamethasone [From Decadron] Allergy Verified 02/11/15 15:47 Penicillins Allergy Verified 02/11/15 15:47 Medical,Surgical,& Family Hx - Medical History Cardio: History of: Hypertension, VT (STENTS PLACED) Psychological: History of: Anxiety Disorders, Depression Neurology: History of: Cerebrovascular Accident (3 TIA'S WITHIN 3 MONTHS), TIA No history of: Seizures ( states pt "does not have a history of seizures ") HEENT: History of: Ear Problem (hard of hearing), Dental Problems (edentulous) Endocrine: History of: Diabetes Mellitus (IDDM) Respiratory: History of: Intubation Genitourinary: History of: Prostate Problems - Surgical History Cardiac Surgeries: Sugical HX of: Cardiac Catheterization Thoracic Surgeries: Patient denies;: Organ Transplant Abdominal Surgeries: Surgical HX of: Cholecystectomy Orthopedic Surgeries: Surgical HX of;: Orthopedic Surgery (right shoulder) - Family History Family History: Reports;: Family Cancer, Family Diabetes, Family Heart Disease, Family Stroke (grandfather) - Social History Smoking Status: Unknown if ever smoked Frequency of Alcohol Use: Unknown Type of Drug Use: Unknown Exam - Constitutional Vitals: Period Temp Pulse Resp BP Sys/Morrison Pulse Ox Last 24 Hr 97.8 F-98.7 F 71-94 13-23 130-184/61-115 92-99 Results - Labs CBC & BMP: 01/10/17 03:51 01/11/17 04:39
[2017-01-11] MEDS ORDERED: ROSUVASTATIN 20 MG TABLET PO SCH (21:00)
[2017-01-11] MEDS: APIXABAN 5 MG TABLET PO SCH (22:10)
[2017-01-12] MEDS: SODIUM CHLORIDE 0.9% 500 ML IV SCH ×2 (00:07→11:00)
[2017-01-12] MEDS: INSULIN LISPRO 100 UNIT/ML SUBCUT SCH ×4 (02:46→18:52)
[2017-01-12 08:01] LABS: Basophils % 0.4 % (0.0-0.8); Eosinophils # 0.3 10*3/uL (0.0-0.87); Eosinophils % 3.4 % (0.00-10.9); Hematocrit 33.3 VOL% (42.0-52.0); Hemoglobin 11.3 GM/DL (14.0-18.0); Immature Granulocytes % 0.5 %; Immature Granulocytes Absolute 0.04 #; Lymphocytes # 2.8 10*3/uL (1.4-4.0); Lymphocytes % 33.1 % (21.2-54.2); Mean Corpuscular HGB Conc 33.9 GM/DL (32-36); Mean Corpuscular Hemoglobin 28 PG (27-34); Mean Corpuscular Volume 81.4 FL (87-102); Mean Platelet Volume 9.5 FL (9.6-12.0); Monocytes # 0.6 10*3/uL (0.11-0.8); Monocytes % 6.9 % (1.7-12.7); Neutrophils # 4.7 10*3/uL (1.4-7.4); Neutrophils % 55.7 % (38.7-73.9); Platelet Count 235 T/CUMM (130-400); Red Blood Count 4.09 MC/CUMM (3.8-5.5); Red Cell Distribution Width 13.7 % (9.3-17.3); White Blood Count 8.5 T/CUMM (4-12)
[2017-01-12 08:20] LABS: Calcium 8.8 MG/DL (8.5-10.1); Osmolality,Calculated 279.7 MOS/KG (273-304); Potassium 3.7 MMOL/L (3.5-5.1)
[2017-01-12] MEDS: ASPIRIN 325 MG TABLET PER TUBE SCH (10:06)
[2017-01-12] MEDS: GABAPENTIN 600 MG TABLET PO SCH ×3 (10:06→20:35)
[2017-01-12] MEDS: PANTOPRAZOLE 40 MG TABLET PO SCH (10:06)
[2017-01-12] MEDS: APIXABAN 5 MG TABLET PO SCH ×2 (10:07→20:39)
[2017-01-12] MEDS: CHLORHEXIDINE 4% SOLN 118 ML BOTTLE TOP SCH ×2 (10:07→17:09)
[2017-01-12] MEDS: CARVEDILOL 12.5 MG TABLET PO SCH ×2 (10:07→20:39)
[2017-01-12] MEDS: SODIUM HYPOCHLORITE 0.25% IRRIG 473 ML BOTTLE TOP SCH ×2 (10:07→17:07)
--- NOTE | 2017-01-12 11:30 | Hospitalist Progress Note ---
Assessment and Plan (1) Diabetes Status: Acute Current Visit: No (2) Hypertension Status: Acute Current Visit: No (3) Seizure Status: Acute Current Visit: Yes (4) Acute CVA (cerebrovascular accident) Status: Acute Current Visit: Yes Hospitalist: Subjective Interval history: No acute events overnight. Patient sitting in chair. Patient and his report that they would like to go home at discharge. Will switch keppra to po today. Possible discharge as soon as tomorrow. Exam - Constitutional Vitals: Period Temp Pulse Resp BP Sys/Morrison Pulse Ox Last 24 Hr 97.8 F-99.5 F 71-82 14-20 130-158/72-84 93-99 General appearance: over weight - Head Head exam: Present: normocephalic, atraumatic - Eye Eye exam: Present: EOMI Pupils: Present: JAMES - ENT ENT exam: Present: normal exam - Neck Neck exam: Present: normal inspection - Respiratory Respiratory exam: Present: clear to auscultation bilaterally. Absent: rhonchi, wheezes - Cardiovascular Cardiovascular exam: Present: regular rate and rhythm - GI/Abdominal GI/Abdominal exam: Present: normal bowel sounds, soft. Absent: tenderness, rebound - Extremities Exam Extremities exam: Present: normal inspection - Back Exam Back exam: Present: normal inspection - Neurological Exam Neurological exam: Present: alert - Psychiatric Psychiatric exam: Present: normal affect, normal mood - Skin Skin exam: Present: warm, intact Results - Labs CBC & BMP: 01/12/17 06:51 01/12/17 06:51 Specialty Discharge - Follow Up or Referrals
--- NOTE | 2017-01-12 12:39 | Neurology Progress Note ---
Neurology - PN : Subjective Interval history: Patient seems to be doing much better. He is being transferred to the room. Getting up and walking some. Family wants to take him home. Eating good and swallowing is good. EEG showed generalized slowing. Exam (Progress Note) - Constitutional Vitals: Period Temp Pulse Resp BP Sys/Morrison Pulse Ox Last 24 Hr 97.9 F-99.5 F 74-82 14-20 130-158/72-87 93-98 Exam: GENERAL: Patient is in no acute distress. NECK: Neck is supple. There is no JVD. No carotid bruits present. No thyroid masses. CVS: First and second heart sounds are normal. There is no S3 present. Regular rate and rhythm. RESPIRATORY: Lungs are clear to auscultation without any rales or rhonchi. ABDOMEN: Soft and non-tender. Bowel sounds are present. There is no hepatosplenomegaly. EXT: There is no palpable edema. Peripheral pulses are present. Skin: No rashes Central Nervous system: General: Alert and awake Speech: Fluent Comprehension: Fair Facial expressions: Normal Cranial Nerves: Pupils are small and sluggish reactive. Extraocular movements are intact. No facial asymmetry seen Motor: Bulk and Tone is normal. Strength mild right hemiparesis Sensory: Unreliable Reflexes: 1+ and symmetrical Cerebellar function: Slow finger to nose testing Toes: Equivocal Gait: Able to get up and take a few steps. Results - Labs CBC & BMP: 01/12/17 06:51 01/12/17 06:51 Assessment and Plan (1) Seizure Status: Acute Assessment and plan: Seizure may very well be hypoglycemia induced. Continue Keppra but change it to 750 mg p.o. twice daily Current Visit: Yes (2) Acute CVA (cerebrovascular accident) Status: Acute Assessment and plan: Continue Eliquis 5 mg p.o. twice daily Okay to go home from neuro standpoint. Schedule home health PT and OT. Thank you for the consultation Current Visit: Yes Specialty Discharge - Follow Up or Referrals
[2017-01-12] MEDS: INSULIN GLARGINE 100 UNIT/ML SUBCUT SCH (13:21)
[2017-01-12] MEDS: ERTAPENEM 1,000 MG in SODIUM CHLORIDE 0.9% 100 ML IV SCH (16:54)
--- NOTE | 2017-01-12 17:56 | CT Report ---
Referring physician: Ed Cotto MD Exam: CT brain without contrast Date: January 12, 2017 Comparison: CT brain without contrast January 10, 2017, MRI brain January 10, 2017 Reason: Slurred speech, decreased level of consciousness The patient is an inpatient who was admitted on January 09, 2017. Technique: Axial images of the head were obtained without the use of contrast. Total DLP was 970.1 mGy*cm. Findings: There is a moderate area of hypoattenuation at the junction of the left temporal lobe, left occipital lobe and left parietal lobe. This was found to represent an acute infarction on the previous MRI of January 10, 2017. There is mild generalized cerebral and cerebellar atrophy/volume loss and probable chronic microvascular ischemic change. There is a small remote infarction within the right cerebellum. Remote lacunar infarctions were seen on the previous MRI but are not well demonstrated on this study. Please see the prior MRI report. The lateral ventricles are mildly prominent but stable, likely secondary to central atrophy/volume loss. No midline shift is present. There is no evidence of recent intracranial hemorrhage. No additional acute infarctions are identified. No acute osseous process is seen. There is mucosal thickening within the sphenoid sinuses bilaterally. This has progressed, and there is now fluid within the right sphenoid sinus. The mastoid air cells appear clear. Impression: 1. An acute infarction was recently seen at the junction of the left temporal, occipital and parietal lobes. This is again demonstrated on this study. 2. Chronic intracranial findings, similar to the prior MRI. 3. Interval development of fluid within the right sphenoid sinus and progression of mucosal thickening within both sphenoid sinuses. The CT exam was performed using one or more of the following dose reduction techniques: Automated exposure control and adjustment of the mA and/or kV according to patient size. PROCEDURE INTERPRETED AT [facility] DEPARTMENT OF RADIOLOGY Final Report Signed by: Dr. Robinson Alberts
[2017-01-12] MEDS: levETIRAcetam 500 MG TABLET PO SCH (20:39)
[2017-01-13] MEDS: INSULIN LISPRO 100 UNIT/ML SUBCUT SCH ×3 (01:24→12:55)
[2017-01-13] MEDS: CARVEDILOL 12.5 MG TABLET PO SCH (09:07)
[2017-01-13] MEDS: ASPIRIN 325 MG TABLET PER TUBE SCH (09:08)
[2017-01-13] MEDS: APIXABAN 5 MG TABLET PO SCH (09:08)
[2017-01-13] MEDS: GABAPENTIN 600 MG TABLET PO SCH (09:08)
[2017-01-13] MEDS: levETIRAcetam 500 MG TABLET PO SCH (09:08)
[2017-01-13] MEDS: PANTOPRAZOLE 40 MG TABLET PO SCH (09:08)
[2017-01-13] MEDS: INSULIN GLARGINE 100 UNIT/ML SUBCUT SCH (09:10)
--- NOTE | 2017-01-13 10:46 | Magnetic Resonance Report ---
Referring physician: Ed Cotto MD Exam: MRI brain without contrast Date: January 13, 2017 Comparison: MRI brain January 10, 2017 Reason: Slurred speech, decreased level of consciousness The patient is an inpatient who was admitted on January 09, 2017. Technique: MRI of the brain was performed without the use of contrast. Obtained images include sagittal T1, axial diffusion-weighted, axial FLAIR, axial T2, coronal T2, axial gradient and axial T1 sequences. A 1.5 Jazmyne magnet was used. Findings: Motion artifact is present and degrades the quality of the study. There is a moderate size area of diffusion restriction and corresponding T2/FLAIR hyperintensity in the left temporal occipital region. This involves the cortex and subcortical white matter and is consistent with an acute infarction in a left EDUCATION PROGRAM COORDINATOR distribution. An acute infarction was seen in this region on the prior study of January 10, 2017, but it has slightly increased in size today. There is mild generalized cerebral and cerebellar atrophy/volume loss. Scattered areas of T2/FLAIR hyperintensity are again seen within the cerebral white matter bilaterally. This is nonspecific but is most consistent with mild chronic microvascular ischemic change. Less likely considerations include a demyelinating process, vasculitis, viral process or Lyme disease. There are remote lacunar infarctions within the bilateral robert radiata, right rocky, within the left thalamus and possibly within the right thalamus. A small remote cortical infarction is suspected in the right frontoparietal region. There is also a small remote infarction within the right cerebellum. No hydrocephalus or midline shift is present. There is no evidence of recent intracranial hemorrhage. A 0.5 cm focus of T1 hyperintensity is again seen in the region of the pituitary stalk. This could represent an ectopic pituitary bright spot or small lipoma. The orbits and sella are otherwise unremarkable. There is scattered mucosal thickening within the paranasal sinuses bilaterally. There is also fluid within the right sphenoid sinus, which appears new. There may be minimal fluid within the mastoid air cells bilaterally. Impression: 1. There is again a moderate size area of acute infarction in the left temporal occipital region. This is in a left EDUCATION PROGRAM COORDINATOR distribution. It appears slightly larger in size compared to January 10, 2017. 2. There is mild generalized cerebral and cerebellar atrophy/volume loss and probable mild chronic microvascular ischemic change. This is similar to before. 3. There are remote lacunar infarctions within the bilateral robert radiata, right rocky, within the left thalamus and possibly within the right thalamus. A small remote cortical infarction is suspected in the right frontoparietal region, and there is a small remote infarction within the right cerebellum. Of note, these findings are better evaluated today due to decreased motion artifact on today's study. 4. There is again a 0.5 cm T1 hyperintense area in the expected region of the pituitary stalk. This could represent ectopic pituitary bright spot or small lipoma. 5. Sinus disease as above with fluid within the right sphenoid sinus. This has increased since the previous study. Findings were discussed with Dr. Cotto on January 09, 2017 at 10:40 AM. PROCEDURE INTERPRETED AT [facility] DEPARTMENT OF RADIOLOGY Final Report Signed by: Dr. Robinson Alberts
[2017-01-13] MEDS: CHLORHEXIDINE 4% SOLN 118 ML BOTTLE TOP SCH (11:25)
[2017-01-13] MEDS: SODIUM HYPOCHLORITE 0.25% IRRIG 473 ML BOTTLE TOP SCH (11:25)
--- NOTE | 2017-01-13 11:27 | Discharge Summary ---
Hospital Course - Hospital Course Hospital Course: Mr. Anderson is a 61 year old male with history of coronary artery disease, diabetes, hypertension, hyperlipidemia, CVA, and chronic wounds presented to the ED as a transfer from [facility] with seizure-like activity followed by respiratory failure requiring intubation. Patient's , son, and daughter are all in the room and can give accurate history. Patient had recent midfoot amputation done by Dr. Mckeon on his right foot on November 13 and patient has been undergoing IV infusion with Cubicin and Invanz since then. stated starting sunday patient started acting confused and she was worried he was having another stroke. His balance has been off because of his chronic wounds on his feet and he has been falling a lot lately. She stated he fell on Sunday and they thought he broke his right arm. He continued to act confused and was complaining of frontal forehead headache and so she took him to the ER last night at [facility] and she states the CT scan was negative for any acute process. She said they gave him some pain medicine and sent him home and he started acting normal. The daughter and son state when he woke up the following morning he was acting okay, sitting on the edge of the couch. He then fell backwards multiple times and then started shaking and they grabbed his tongue so he would not swallow it. They both took turns providing CPR. When the paramedics arrived the patient had a pulse and was breathing via facemask. Patient was intubated at the ED at [facility] and transferred here for further care. Patient is sedated on the vent, afebrile and his blood pressure is elevated at 155/118. Patient's white count is normal, H&H stable at 12.6/ 36.7, blood glucose is 271, UA is negative. Patient's foot wound is clean with no signs of infection. Patient was admitted to the hospitalist service with seizure activity and stroke. He was initially admitted to the ICU intubated. He was able to be extubated the following day. Neurology was consulted. MRI demonstrated moderate size area of acute infarction of the left temporal occipital region. EEG with diffuse slowing. He was started on keppra, crestor and eliquis. His hospital course was complicated by an episode of confusion with difficulty speaking, repeat MRI with slightly larger appearance of infarction. The incidence only lasted a few minutes and patient returned to his baseline. Patient and his refused swing bed placement, would like for patient to go home. Patient has now reached maximum benefit of inpatient stay and will be discharged home with outpatient physical therapy. - Time spent with patient Time with patient DS: Less than 30 minutes Diagnosis - Discharge Diagnosis (1) Diabetes Status: Chronic (2) Hypertension Status: Chronic (3) Seizure Status: Chronic (4) Acute CVA (cerebrovascular accident) Status: Chronic Specialty Discharge - Follow Up or Referrals Follow up with: Ruben Jaramillo MD [Physician] - 1 Month Discharge Plan - Discharge Data Condition at Discharge: Stable Discharge Diet: advance to your usual diet Activity: increase activity as tolerated Hygiene: no restrictions Weight Bearing at Discharge: weight bear as tolerated Driving: not until seen by doctor - Discharge Medications New Apixaban [Eliquis] 5 mg PO BID #60 tablet DAPTOmycin [Cubicin] 400 mg IV Q24H vial Ertapenem [INVanz] 1,000 mg IV Q24H vial Rosuvastatin [Crestor] 20 mg PO BEDTIME #30 tablet levETIRAcetam TAB [Keppra Tab] 750 mg PO BID #60 tablet Insulin Glargine [Lantus] 15 unit SUBCUT DAILY #100 unit Continue Gabapentin [Neurontin] 800 mg PO TID Citalopram [CeleXA] 20 mg PO DAILY Aspirin Tab 325 mg PO DAILY Amlodipine Besylate/Benazepril [Lotrel 10-20 mg Capsule] 1 each PO DAILY Meloxicam 15 mg PO DAILY Carvedilol 3.125 mg PO DAILY busPIRone [Buspar] 5 mg PO BID hydrOXYzine HCl [Hydroxyzine HCl] 25 mg PO TID Discontinued Insulin Glargine [Lantus] 70 unit SUBCUT BID - Follow Up or Referral - Forms/Instructions Instructions: Ischemic Stroke (DC) Exam - Constitutional Vitals: Period Temp Pulse Resp BP Sys/Morrison Pulse Ox Last 24 Hr 97.0 F-100.1 F 73-111 18-91 127-156/65-89 90-98 General appearance: over weight - Head Head exam: Present: normocephalic, atraumatic - Eye Eye exam: Present: EOMI Pupils: Present: JAMES - ENT ENT exam: Present: normal exam - Neck Neck exam: Present: normal inspection - Respiratory Respiratory exam: Present: clear to auscultation bilaterally. Absent: rhonchi, wheezes - Cardiovascular Cardiovascular exam: Present: regular rate and rhythm - GI/Abdominal GI/Abdominal exam: Present: normal bowel sounds, soft. Absent: tenderness, rebound - Extremities Exam Extremities exam: Present: normal inspection - Back Exam Back exam: Present: normal inspection - Neurological Exam Neurological exam: Present: alert - Psychiatric Psychiatric exam: Present: normal affect, normal mood - Skin Skin exam: Present: warm, intact Discharge Results Labs on day of discharge: Labs from last 24 hours 01/13/17 01/13/17 01/12/17 05:50 00:39 18:10 POC Glucose 233 H 237 H 306 H 01/12/17 16:44 POC Glucose 305 H DS: Provider Date of admission: 01/09/17 11:07 Primary care physician: . No PCP Attending physician on admission: Dk Kwan MD Consults: 01/09/17 12:25 Consult to Physician [CONS] Routine Comment: seizure Consulting Provider: Ruben Jaramillo Person Notified: [email or web address] Date Notified: 01/09/17 Time Notified: 13:05 01/10/17 12:56 Consult to [facility], Educator [CONS] Routine Reason for Manager Professional Development: Re-education 01/10/17 17:21 Consult to Physician [CONS] Routine Comment: ? fx arm Consulting Provider: Consult to Specialist Group: Orthopedic When should Consulting Provider be notified: In am Date Notified: 01/11/17 Time Notified: 08:50 Consult Notification Comment: notified office staff of consult 01/10/17 17:23 Consult to Occupational Therapy [CONS] Routine Reason for Occupational Therapy: Evaluate and Treat Consult to Physical Therapy [CONS] Routine Reason for Physical Therapy: Evaluate and Treat 01/11/17 08:09 Consult to Case Mgmt/Social Srvs [CONS] Routine Reason for Case Mgmt/Social Srvs: Rehab 01/12/17 11:25 Consult to Case Mgmt/Social Srvs [CONS] Routine Reason for Case Mgmt/Social Srvs: Other Consult Comment: outpatient physical therapy Discharging clinician: Ed Cotto MD
[2017-01-13 12:35] VITALS: BP 140/87
== END 2017-01-13 13:09 | disposition home or self-care (01) | DRG 45 ==
LOC: N.ED 10:27 → N.EDINP 11:07 → SUATTDRO 11:07 → N.EDINP 11:35 → N.CC 11:55 → N.5E 01-11 09:59
PROVIDERS: ADMIT Internal Medicine; ATTEND Internal Medicine

== ENCOUNTER 2017-12-11 17:59 | Inpatient (IN) ==
[2017-12-11] MEDS ORDERED: ONDANSETRON 4 MG/2 ML VIAL IV PRN (23:20)
[2017-12-11] MEDS ORDERED: DEXTROSE 50% 25 GM/50 ML VIAL IV PRN (23:20)
[2017-12-11] MEDS ORDERED: GLUCAGON 1 MG VIAL IM PRN (23:20)
[2017-12-12] MEDS ORDERED: CLINDAMYCIN 300 MG CAPSULE PO SCH
[2017-12-12 01:06] LABS: Basophils % 0.3 % (0.0-0.8); Eosinophils # 0.5 10*3/uL (0.0-0.87); Eosinophils % 5.3 % (0.00-10.9); Hematocrit 27.1 VOL% (42.0-52.0); Hemoglobin 8.9 GM/DL (14.0-18.0); Immature Granulocytes % 0.2 %; Immature Granulocytes Absolute 0.02 #; Lymphocytes # 2.1 10*3/uL (1.4-4.0); Lymphocytes % 23.1 % (21.2-54.2); Mean Corpuscular HGB Conc 32.8 GM/DL (32-36); Mean Corpuscular Hemoglobin 27 PG (27-34); Mean Corpuscular Volume 83.4 FL (87-102); Mean Platelet Volume 9.6 FL (9.6-12.0); Monocytes # 0.4 10*3/uL (0.11-0.8); Monocytes % 4.3 % (1.7-12.7); Neutrophils # 6.1 10*3/uL (1.4-7.4); Neutrophils % 66.8 % (38.7-73.9); Platelet Count 219 T/CUMM (130-400); Red Blood Count 3.25 MC/CUMM (3.8-5.5); Red Cell Distribution Width 14.6 % (9.3-17.3); White Blood Count 9.1 T/CUMM (4-12)
[2017-12-12] MEDS ORDERED: ZALEPLON 5 MG CAPSULE PO ONE (01:24)
[2017-12-12] MEDS: ALBUTEROL/IPRATROPIUM 3 ML NEB RESP TX PRN ×2 (01:33→05:18)
[2017-12-12 01:39] LABS: Calcium 8.3 MG/DL (8.5-10.1); Osmolality,Calculated 279.4 MOS/KG (273-304); Potassium 3.5 MMOL/L (3.5-5.1); Risk Ratio 5.35; Thyroid Stimulating Hormone 3.75 uIU/ml (0.358-3.74); VLDL CHOLESTEROL 38.8 MG/DL
[2017-12-12] MEDS: ACETAMINOPHEN 325 MG TABLET PO PRN ×2 (05:43→20:21)
[2017-12-12] MEDS ORDERED: METOPROLOL TARTRATE 5 MG/5 ML VIAL IV ONE ×2 (06:05→14:39)
[2017-12-12 07:19] LABS: % Iron Saturation 6.6 % (18-50)
[2017-12-12] MEDS: GABAPENTIN 400 MG CAPSULE PO SCH ×3 (08:57→20:23)
[2017-12-12] MEDS: SPIRONOLACTONE 25 MG TABLET PO SCH (08:59)
[2017-12-12] MEDS: busPIRone 5 MG TABLET PO SCH ×2 (08:59→20:23)
[2017-12-12] MEDS: hydrOXYzine HCL 25 MG TABLET PO SCH ×3 (08:59→20:24)
[2017-12-12] MEDS ORDERED: CARVEDILOL 6.25 MG TABLET PO SCH (09:00)
[2017-12-12] MEDS ORDERED: INSULIN GLARGINE 100 UNIT/ML SUBCUT SCH (09:00)
[2017-12-12] MEDS ORDERED: APIXABAN 5 MG TABLET PO SCH (09:00)
[2017-12-12] MEDS ORDERED: ACETAMINOPHEN 325 MG TABLET PO SCH (09:00)
[2017-12-12] MEDS ORDERED: PHENYTOIN ER 100 MG CAPSULE PO SCH ×2 (09:00→21:00)
[2017-12-12] MEDS: CITALOPRAM 20 MG TABLET PO SCH (09:00)
[2017-12-12] MEDS ORDERED: CIPROFLOXACIN 500 MG TABLET PO SCH (09:00)
[2017-12-12] MEDS: SERTRALINE 25 MG TABLET PO SCH (09:00)
[2017-12-12] MEDS ORDERED: levETIRAcetam 250 MG TABLET PO SCH (09:00)
[2017-12-12] MEDS ORDERED: ASPIRIN 325 MG TABLET PO SCH (09:00)
[2017-12-12] MEDS: INSULIN LISPRO 100 UNIT/ML SUBCUT SCH ×4 (09:08→20:28)
[2017-12-12] MEDS: GENTAMICIN 0.1% CREAM 15 GM TUBE TOP SCH (12:07)
[2017-12-12] MEDS: SKIN HEALING OINT (AQUAPHOR) 50 GM TUBE TOP SCH (12:07)
[2017-12-12] MEDS: ACETIC ACID 0.25% IRRIGATION 1,000 ML BOTTLE IRRIG SCH (12:07)
[2017-12-12] MEDS ORDERED: ENOXAPARIN 80 MG/0.8 ML SYRINGE SUBCUT ONE (12:27)
[2017-12-12] MEDS ORDERED: FUROSEMIDE 40 MG/4 ML VIAL IV SCH (12:30)
[2017-12-12] MEDS ORDERED: ASPIRIN CHEW 81 MG TABLET PO ONE (13:16)
[2017-12-12] MEDS ORDERED: DIAZEPAM 5 MG TABLET PO ONE (13:17)
[2017-12-12] MEDS ORDERED: POTASSIUM CHLORIDE RIDER 10 MEQ in PREMIX 1 EACH IV PRN (13:17)
[2017-12-12] MEDS ORDERED: MAGNESIUM SULF RIDER 2 GM in PREMIX 1 EACH IV PRN (13:17)
[2017-12-12] MEDS ORDERED: diphenhydrAMINE CAP 25 MG CAPSULE PO ONE (13:17)
[2017-12-12] MEDS ORDERED: SODIUM CHLORIDE 0.9% 1,000 ML IV SCH (13:30)
[2017-12-12] MEDS ORDERED: MIDAZOLAM 2 MG/2 ML VIAL ONE (13:45)
[2017-12-12] MEDS ORDERED: MEPERIDINE 25 MG/1 ML VIAL ONE (13:45)
[2017-12-12] MEDS ORDERED: CARVEDILOL 12.5 MG TABLET PO SCH (13:49)
[2017-12-12] MEDS ORDERED: NITROGLYCERIN SL 0.4 MG TABLET SL PRN (13:51)
[2017-12-12] MEDS ORDERED: HEPARIN 5,000 UNIT/1 ML VIAL ONE (14:09)
[2017-12-12] MEDS ORDERED: TIROFIBAN 5,000 MCG/100 ML PREMIX IV ONE (14:34)
[2017-12-12] MEDS ORDERED: TICAGRELOR 90 MG TABLET ONE (15:13)
[2017-12-12] MEDS ORDERED: TIROFIBAN 5,000 MCG/100 ML PREMIX IV SCH (16:00)
[2017-12-12] MEDS ORDERED: FUROSEMIDE 40 MG/4 ML VIAL ONE (16:05)
[2017-12-12] MEDS: CARVEDILOL 12.5 MG TABLET PO SCH ×2 (18:14→21:42)
[2017-12-12] MEDS: MEROPENEM 500 MG in SYRINGE 1 EACH IV SCH (18:14)
[2017-12-12 18:35] LABS: Troponin I Only 0.587 NG/ML (0.00-0.045)
[2017-12-12] MEDS ORDERED: FUROSEMIDE 40 MG/4 ML VIAL IV ONE (18:38)
[2017-12-12] MEDS ORDERED: NITROGLYCERIN DRIP 50 MG/250 ML BOTTLE IV PRN (18:39)
[2017-12-12] MEDS: LEVOFLOXACIN INJ 500 MG in PREMIX 1 EACH IV SCH (19:50)
[2017-12-12] MEDS: ALBUTEROL/IPRATROPIUM 3 ML NEB RESP TX SCH (19:50)
[2017-12-12] MEDS ORDERED: metOLazone 2.5 MG TABLET PO ONE (20:02)
[2017-12-12] MEDS: ROSUVASTATIN 20 MG TABLET PO SCH (20:21)
[2017-12-12] MEDS: TICAGRELOR 90 MG TABLET PO SCH (20:22)
[2017-12-12] MEDS: QUEtiapine 25 MG TABLET PO SCH (20:24)
[2017-12-12] MEDS: DONEPEZIL 10 MG TABLET PO SCH (20:24)
[2017-12-12] MEDS: FUROSEMIDE 40 MG/4 ML VIAL IV SCH (20:56)
[2017-12-12] MEDS ORDERED: ROSUVASTATIN 20 MG TABLET PO SCH (21:00)
[2017-12-12] MEDS: PHENYTOIN INJ 500 MG in SODIUM CHLORIDE 0.9% 100 ML IV SCH (21:36)
[2017-12-13 01:04] LABS: Basophils % 0.3 % (0.0-0.8); Eosinophils % 0.3 % (0.00-10.9); Hemoglobin 8.2 GM/DL (14.0-18.0); Immature Granulocytes % 0.4 %; Immature Granulocytes Absolute 0.03 #; Lymphocytes # 1.4 10*3/uL (1.4-4.0); Mean Corpuscular HGB Conc 32.8 GM/DL (32-36); Mean Corpuscular Hemoglobin 27 PG (27-34); Mean Corpuscular Volume 82.8 FL (87-102); Mean Platelet Volume 9.4 FL (9.6-12.0); Monocytes # 0.4 10*3/uL (0.11-0.8); Monocytes % 5.4 % (1.7-12.7); Neutrophils # 5.8 10*3/uL (1.4-7.4); Neutrophils % 75.6 % (38.7-73.9); Platelet Count 213 T/CUMM (130-400); Red Blood Count 3.02 MC/CUMM (3.8-5.5); White Blood Count 7.7 T/CUMM (4-12)
[2017-12-13 01:33] LABS: Calcium 7.6 MG/DL (8.5-10.1); Osmolality,Calculated 281.4 MOS/KG (273-304); Potassium 3.3 MMOL/L (3.5-5.1)
[2017-12-13 01:45] LABS: Troponin I Only 0.731 NG/ML (0.00-0.045)
[2017-12-13 02:14] LABS: Calcium 7.7 MG/DL (8.5-10.1); Osmolality,Calculated 277.7 MOS/KG (273-304); Potassium 3.2 MMOL/L (3.5-5.1)
[2017-12-13] MEDS: MEROPENEM 500 MG in SYRINGE 1 EACH IV SCH ×3 (03:20→17:50)
[2017-12-13 04:17] LABS: ABG Base Excess 0.8 MMOL/L (-2.5-2.5); ABG HCO3 25.2 MMOL/L (20-26); ABG Oxygen Saturation 97.4 % (95-100); ABG PCO2 39.2 MM HG (35-48); ABG PH 7.418 (7.35-7.45); ABG PO2 93.5 MM HG (80-95); ABG TCO2 23.3 MMOL/L (23-27); Allen Test Positive
[2017-12-13] MEDS: ALBUTEROL/IPRATROPIUM 3 ML NEB RESP TX SCH ×5 (04:23→19:34)
[2017-12-13] MEDS: CARVEDILOL 12.5 MG TABLET PO SCH (05:50)
[2017-12-13 07:50] LABS: ABG Base Excess 2.1 MMOL/L (-2.5-2.5); ABG HCO3 26.3 MMOL/L (20-26); ABG Oxygen Saturation 97.9 % (95-100); ABG PCO2 35.5 MM HG (35-48); ABG PH 7.467 (7.35-7.45); ABG PO2 95.7 MM HG (80-95); ABG TCO2 23.7 MMOL/L (23-27)
[2017-12-13] MEDS ORDERED: GLUCAGON 1 MG VIAL IM PRN (08:14)
[2017-12-13] MEDS ORDERED: DEXTROSE 50% 25 GM/50 ML VIAL IV PRN (08:14)
[2017-12-13 08:36] LABS: Troponin I Only 0.862 NG/ML (0.00-0.045)
[2017-12-13] MEDS ORDERED: CARVEDILOL 25 MG TABLET PO SCH ×2 (09:00→12:00)
[2017-12-13] MEDS: INSULIN LISPRO 100 UNIT/ML SUBCUT SCH ×4 (09:17→21:46)
[2017-12-13] MEDS: PHENYTOIN INJ 500 MG in SODIUM CHLORIDE 0.9% 100 ML IV SCH (09:19)
[2017-12-13] MEDS: TICAGRELOR 90 MG TABLET PO SCH ×2 (09:24→22:48)
[2017-12-13] MEDS: POTASSIUM CHLORIDE 20 MEQ TABLET PO PRN ×3 (09:25→13:33)
[2017-12-13] MEDS: busPIRone 5 MG TABLET PO SCH ×2 (09:26→22:47)
[2017-12-13] MEDS: CITALOPRAM 20 MG TABLET PO SCH (09:28)
[2017-12-13] MEDS: metOLazone 2.5 MG TABLET PO SCH (09:28)
[2017-12-13] MEDS: SERTRALINE 25 MG TABLET PO SCH (09:29)
[2017-12-13] MEDS: GABAPENTIN 400 MG CAPSULE PO SCH ×3 (09:29→22:47)
[2017-12-13] MEDS: SPIRONOLACTONE 25 MG TABLET PO SCH (09:29)
[2017-12-13] MEDS: hydrOXYzine HCL 25 MG TABLET PO SCH ×3 (09:29→22:47)
[2017-12-13] MEDS: ASPIRIN EC 81 MG TABLET PO SCH (09:29)
[2017-12-13] MEDS: FUROSEMIDE 40 MG/4 ML VIAL IV SCH ×2 (09:33→22:48)
[2017-12-13] MEDS: ACETIC ACID 0.25% IRRIGATION 1,000 ML BOTTLE IRRIG SCH (13:33)
[2017-12-13] MEDS: SKIN HEALING OINT (AQUAPHOR) 50 GM TUBE TOP SCH (13:34)
[2017-12-13] MEDS: GENTAMICIN 0.1% CREAM 15 GM TUBE TOP SCH (13:34)
[2017-12-13] MEDS: LEVOFLOXACIN INJ 500 MG in PREMIX 1 EACH IV SCH (17:55)
[2017-12-13] MEDS: CARVEDILOL 6.25 MG TABLET PO SCH (18:26)
[2017-12-13 21:07] LABS: ABG Base Excess 1.5 MMOL/L (-2.5-2.5); ABG HCO3 25.3 MMOL/L (20-26); ABG PCO2 36.5 MM HG (35-48); ABG PH 7.459 (7.35-7.45); ABG PO2 123.5 MM HG (80-95); ABG TCO2 26.4 MMOL/L (23-27)
[2017-12-13] MEDS ORDERED: POTASSIUM CHLORIDE 20 MEQ PACK PO ONE (21:18)
[2017-12-13] MEDS ORDERED: BUMETANIDE 1 MG/4 ML VIAL IV ONE (21:21)
[2017-12-13 21:47] LABS: Basophils % 0.2 % (0.0-0.8); Eosinophils # 0.1 10*3/uL (0.0-0.87); Eosinophils % 0.5 % (0.00-10.9); Hematocrit 23.9 VOL% (42.0-52.0); Hemoglobin 7.9 GM/DL (14.0-18.0); Immature Granulocytes % 0.4 %; Immature Granulocytes Absolute 0.04 #; Lymphocytes # 1.9 10*3/uL (1.4-4.0); Lymphocytes % 20.5 % (21.2-54.2); Mean Corpuscular HGB Conc 33.1 GM/DL (32-36); Mean Corpuscular Hemoglobin 27 PG (27-34); Mean Platelet Volume 9.6 FL (9.6-12.0); Monocytes # 0.5 10*3/uL (0.11-0.8); Monocytes % 5.3 % (1.7-12.7); Neutrophils # 6.9 10*3/uL (1.4-7.4); Neutrophils % 73.1 % (38.7-73.9); Platelet Count 226 T/CUMM (130-400); Red Blood Count 2.88 MC/CUMM (3.8-5.5); Red Cell Distribution Width 15.1 % (9.3-17.3); White Blood Count 9.4 T/CUMM (4-12)
[2017-12-13 22:08] LABS: Prolactin 43.8 NG/ML
[2017-12-13 22:33] LABS: Alanine Aminotransferase 22 U/L (16-61); Albumin 1.6 G/DL (3.4-5.0); Alkaline Phosphatase 117 U/L (45-117); Aspartate Amino Transferase 29 U/L (0-37); Bilirubin,Total < 0.39 MG/DL (0.2-1.0); Blood Urea Nitrogen 30 MG/DL (7-18); Calcium 7.8 MG/DL (8.5-10.1); Glucose 117 MG/DL (74-106); Osmolality,Calculated 285.4 MOS/KG (273-304); Potassium 3.5 MMOL/L (3.5-5.1); Sodium 140 MMOL/L (136-145); Total Protein 6.2 G/DL (6.4-8.3)
[2017-12-13 22:34] LABS: Troponin I Only 0.703 NG/ML (0.00-0.045)
[2017-12-13] MEDS: ROSUVASTATIN 20 MG TABLET PO SCH (22:46)
[2017-12-13] MEDS: DONEPEZIL 10 MG TABLET PO SCH (22:46)
[2017-12-13] MEDS: PHENYTOIN ER 100 MG CAPSULE PO SCH (22:47)
[2017-12-13] MEDS: QUEtiapine 25 MG TABLET PO SCH (22:47)
[2017-12-13] MEDS: levETIRAcetam 250 MG TABLET PO SCH (22:48)
[2017-12-14] MEDS: ALBUTEROL/IPRATROPIUM 3 ML NEB RESP TX SCH ×5 (00:10→19:37)
[2017-12-14] MEDS: CARVEDILOL 6.25 MG TABLET PO SCH ×3 (00:32→12:37)
[2017-12-14] MEDS: MEROPENEM 500 MG in SYRINGE 1 EACH IV SCH ×3 (02:31→18:54)
[2017-12-14 05:37] LABS: Basophils % 0.1 % (0.0-0.8); Eosinophils # 0.1 10*3/uL (0.0-0.87); Hematocrit 22.3 VOL% (42.0-52.0); Hemoglobin 7.5 GM/DL (14.0-18.0); Immature Granulocytes % 0.6 %; Immature Granulocytes Absolute 0.05 #; Lymphocytes # 1.7 10*3/uL (1.4-4.0); Lymphocytes % 20.9 % (21.2-54.2); Mean Corpuscular HGB Conc 33.6 GM/DL (32-36); Mean Corpuscular Hemoglobin 28 PG (27-34); Mean Corpuscular Volume 81.7 FL (87-102); Mean Platelet Volume 9.6 FL (9.6-12.0); Monocytes # 0.5 10*3/uL (0.11-0.8); Neutrophils # 5.8 10*3/uL (1.4-7.4); Neutrophils % 71.4 % (38.7-73.9); Platelet Count 209 T/CUMM (130-400); Red Blood Count 2.73 MC/CUMM (3.8-5.5); Red Cell Distribution Width 15.2 % (9.3-17.3); White Blood Count 8.1 T/CUMM (4-12)
[2017-12-14 05:57] LABS: Calcium 7.9 MG/DL (8.5-10.1); Osmolality,Calculated 286.4 MOS/KG (273-304); Potassium 3.9 MMOL/L (3.5-5.1)
[2017-12-14 06:17] LABS: Troponin I Only 0.377 NG/ML (0.00-0.045)
[2017-12-14] MEDS ORDERED: FUROSEMIDE 40 MG/4 ML VIAL IV ONE (07:34)
[2017-12-14] MEDS ORDERED: SODIUM CHLORIDE 0.9% 1,000 ML IV PRN ×2 (07:34→10:35)
[2017-12-14 08:10] LABS: ABG Base Excess 1.8 MMOL/L (-2.5-2.5); ABG HCO3 25.8 MMOL/L (20-26); ABG Oxygen Saturation 95.3 % (95-100); ABG PCO2 37.6 MM HG (35-48); ABG PH 7.454 (7.35-7.45); ABG PO2 82.4 MM HG (80-95); ABG TCO2 26.9 MMOL/L (23-27)
[2017-12-14] MEDS: INSULIN LISPRO 100 UNIT/ML SUBCUT SCH ×4 (08:21→21:19)
[2017-12-14] MEDS: PHENYTOIN ER 100 MG CAPSULE PO SCH ×2 (09:42→21:12)
[2017-12-14] MEDS: metOLazone 2.5 MG TABLET PO SCH (09:42)
[2017-12-14] MEDS: GABAPENTIN 400 MG CAPSULE PO SCH ×3 (09:42→21:15)
[2017-12-14] MEDS: levETIRAcetam 250 MG TABLET PO SCH ×2 (09:43→21:13)
[2017-12-14] MEDS: CAPTOPRIL 12.5 MG TABLET PO SCH ×2 (09:43→21:15)
[2017-12-14] MEDS: busPIRone 5 MG TABLET PO SCH ×2 (09:43→21:14)
[2017-12-14] MEDS: hydrOXYzine HCL 25 MG TABLET PO SCH ×3 (09:43→21:17)
[2017-12-14] MEDS: CITALOPRAM 20 MG TABLET PO SCH (09:43)
[2017-12-14] MEDS: ASPIRIN EC 81 MG TABLET PO SCH (09:43)
[2017-12-14] MEDS: SERTRALINE 25 MG TABLET PO SCH (09:43)
[2017-12-14] MEDS: GENTAMICIN 0.1% CREAM 15 GM TUBE TOP SCH (09:44)
[2017-12-14] MEDS: SPIRONOLACTONE 25 MG TABLET PO SCH (09:44)
[2017-12-14] MEDS: TICAGRELOR 90 MG TABLET PO SCH ×2 (09:44→21:15)
[2017-12-14] MEDS: ACETIC ACID 0.25% IRRIGATION 1,000 ML BOTTLE IRRIG SCH (09:44)
[2017-12-14] MEDS: SKIN HEALING OINT (AQUAPHOR) 50 GM TUBE TOP SCH (09:44)
[2017-12-14] MEDS: FUROSEMIDE 40 MG/4 ML VIAL IV SCH ×2 (09:45→21:17)
[2017-12-14] MEDS: LEVOFLOXACIN INJ 500 MG in PREMIX 1 EACH IV SCH (18:55)
[2017-12-14] MEDS: DONEPEZIL 10 MG TABLET PO SCH (21:15)
[2017-12-14] MEDS: CARVEDILOL 3.125 MG TABLET PO SCH (21:16)
[2017-12-14] MEDS: QUEtiapine 25 MG TABLET PO SCH (21:24)
[2017-12-14] MEDS: ROSUVASTATIN 20 MG TABLET PO SCH (21:26)
[2017-12-15] MEDS: ALBUTEROL/IPRATROPIUM 3 ML NEB RESP TX SCH ×6 (00:30→23:00)
[2017-12-15] MEDS: MEROPENEM 500 MG in SYRINGE 1 EACH IV SCH (02:01)
[2017-12-15 04:39] LABS: Basophils % 0.1 % (0.0-0.8); Eosinophils # 0.2 10*3/uL (0.0-0.87); Eosinophils % 2.3 % (0.00-10.9); Hematocrit 29.3 VOL% (42.0-52.0); Hemoglobin 10.1 GM/DL (14.0-18.0); Immature Granulocytes % 0.5 %; Immature Granulocytes Absolute 0.04 #; Lymphocytes # 2.2 10*3/uL (1.4-4.0); Lymphocytes % 27.2 % (21.2-54.2); Mean Corpuscular HGB Conc 34.5 GM/DL (32-36); Mean Corpuscular Hemoglobin 28 PG (27-34); Mean Corpuscular Volume 80.9 FL (87-102); Mean Platelet Volume 9.6 FL (9.6-12.0); Monocytes # 0.6 10*3/uL (0.11-0.8); Monocytes % 6.8 % (1.7-12.7); Neutrophils # 5.2 10*3/uL (1.4-7.4); Neutrophils % 63.1 % (38.7-73.9); Platelet Count 220 T/CUMM (130-400); Red Blood Count 3.62 MC/CUMM (3.8-5.5); Red Cell Distribution Width 14.7 % (9.3-17.3); White Blood Count 8.2 T/CUMM (4-12)
[2017-12-15 05:17] LABS: Osmolality,Calculated 282.7 MOS/KG (273-304); Potassium 3.5 MMOL/L (3.5-5.1)
[2017-12-15 05:26] LABS: Folate 4.4 NG/ML (5.4-24.0)
[2017-12-15] MEDS: INSULIN LISPRO 100 UNIT/ML SUBCUT SCH ×4 (08:36→20:59)
[2017-12-15] MEDS ORDERED: LEVOFLOXACIN 500 MG TABLET PO SCH (09:00)
[2017-12-15] MEDS: CITALOPRAM 20 MG TABLET PO SCH (09:38)
[2017-12-15] MEDS: GABAPENTIN 400 MG CAPSULE PO SCH ×3 (09:38→20:55)
[2017-12-15] MEDS: PHENYTOIN ER 100 MG CAPSULE PO SCH ×2 (09:38→20:56)
[2017-12-15] MEDS: levETIRAcetam 250 MG TABLET PO SCH ×2 (09:39→20:55)
[2017-12-15] MEDS: CARVEDILOL 3.125 MG TABLET PO SCH ×2 (09:40→20:58)
[2017-12-15] MEDS: SERTRALINE 25 MG TABLET PO SCH (09:40)
[2017-12-15] MEDS: FOLIC ACID 1 MG TABLET PO SCH (09:40)
[2017-12-15] MEDS: metOLazone 2.5 MG TABLET PO SCH (09:40)
[2017-12-15] MEDS: ASPIRIN EC 81 MG TABLET PO SCH (09:40)
[2017-12-15] MEDS: hydrOXYzine HCL 25 MG TABLET PO SCH ×3 (09:40→20:57)
[2017-12-15] MEDS: busPIRone 5 MG TABLET PO SCH ×2 (09:40→21:01)
[2017-12-15] MEDS: GENTAMICIN 0.1% CREAM 15 GM TUBE TOP SCH (09:41)
[2017-12-15] MEDS: SPIRONOLACTONE 25 MG TABLET PO SCH (09:41)
[2017-12-15] MEDS: SKIN HEALING OINT (AQUAPHOR) 50 GM TUBE TOP SCH (09:41)
[2017-12-15] MEDS: ACETIC ACID 0.25% IRRIGATION 1,000 ML BOTTLE IRRIG SCH (09:41)
[2017-12-15] MEDS: FUROSEMIDE 40 MG TABLET PO SCH (16:51)
[2017-12-15] MEDS: DONEPEZIL 10 MG TABLET PO SCH (20:55)
[2017-12-15] MEDS: ROSUVASTATIN 20 MG TABLET PO SCH (20:55)
[2017-12-15] MEDS: QUEtiapine 25 MG TABLET PO SCH (20:58)
[2017-12-16 06:24] LABS: Basophils % 0.3 % (0.0-0.8); Eosinophils # 0.3 10*3/uL (0.0-0.87); Eosinophils % 4.1 % (0.00-10.9); Hematocrit 31.9 VOL% (42.0-52.0); Hemoglobin 10.4 GM/DL (14.0-18.0); Immature Granulocytes % 0.3 %; Immature Granulocytes Absolute 0.02 #; Lymphocytes % 27.4 % (21.2-54.2); Mean Corpuscular HGB Conc 32.6 GM/DL (32-36); Mean Corpuscular Hemoglobin 27 PG (27-34); Mean Corpuscular Volume 82.9 FL (87-102); Mean Platelet Volume 9.7 FL (9.6-12.0); Monocytes # 0.5 10*3/uL (0.11-0.8); Monocytes % 6.3 % (1.7-12.7); Neutrophils # 4.4 10*3/uL (1.4-7.4); Neutrophils % 61.6 % (38.7-73.9); Platelet Count 248 T/CUMM (130-400); Red Blood Count 3.85 MC/CUMM (3.8-5.5); Red Cell Distribution Width 14.7 % (9.3-17.3); White Blood Count 7.1 T/CUMM (4-12)
[2017-12-16 06:55] LABS: Calcium 8.3 MG/DL (8.5-10.1); Osmolality,Calculated 283.5 MOS/KG (273-304); Potassium 3.8 MMOL/L (3.5-5.1)
[2017-12-16] MEDS: ALBUTEROL/IPRATROPIUM 3 ML NEB RESP TX SCH ×4 (08:15→19:12)
[2017-12-16] MEDS: busPIRone 5 MG TABLET PO SCH ×2 (09:51→21:42)
[2017-12-16] MEDS: INSULIN LISPRO 100 UNIT/ML SUBCUT SCH ×4 (09:51→21:43)
[2017-12-16] MEDS: metOLazone 2.5 MG TABLET PO SCH (09:52)
[2017-12-16] MEDS: PHENYTOIN ER 100 MG CAPSULE PO SCH ×2 (09:53→21:41)
[2017-12-16] MEDS: FOLIC ACID 1 MG TABLET PO SCH (09:53)
[2017-12-16] MEDS: GABAPENTIN 400 MG CAPSULE PO SCH ×3 (09:54→21:42)
[2017-12-16] MEDS: CITALOPRAM 20 MG TABLET PO SCH (09:54)
[2017-12-16] MEDS: ASPIRIN EC 81 MG TABLET PO SCH (09:54)
[2017-12-16] MEDS: CARVEDILOL 3.125 MG TABLET PO SCH ×2 (09:54→21:43)
[2017-12-16] MEDS: hydrOXYzine HCL 25 MG TABLET PO SCH ×3 (09:55→21:42)
[2017-12-16] MEDS: FUROSEMIDE 40 MG TABLET PO SCH ×2 (09:55→17:05)
[2017-12-16] MEDS: levETIRAcetam 250 MG TABLET PO SCH ×2 (09:55→21:41)
[2017-12-16] MEDS: SERTRALINE 25 MG TABLET PO SCH (09:56)
[2017-12-16] MEDS: SPIRONOLACTONE 25 MG TABLET PO SCH (09:56)
[2017-12-16] MEDS: SKIN HEALING OINT (AQUAPHOR) 50 GM TUBE TOP SCH (09:56)
[2017-12-16] MEDS: ACETIC ACID 0.25% IRRIGATION 1,000 ML BOTTLE IRRIG SCH (09:56)
[2017-12-16] MEDS: GENTAMICIN 0.1% CREAM 15 GM TUBE TOP SCH (09:56)
[2017-12-16] MEDS ORDERED: CLOPIDOGREL 300 MG TABLET PO ONE (10:14)
[2017-12-16] MEDS ORDERED: TAMSULOSIN 0.4 MG CAPSULE PO SCH (21:00)
[2017-12-16] MEDS: DONEPEZIL 10 MG TABLET PO SCH (21:41)
[2017-12-16] MEDS: ROSUVASTATIN 20 MG TABLET PO SCH (21:41)
[2017-12-16] MEDS: QUEtiapine 25 MG TABLET PO SCH (21:42)
[2017-12-17] MEDS: ALBUTEROL/IPRATROPIUM 3 ML NEB RESP TX SCH ×6 (00:03→23:00)
[2017-12-17 03:55] LABS: Apearance,Urine CLEAR (Clear); Bacteria,Urine Occasional /HPF (Few); Bilirubin,Urine Negative (Negative); Blood, Urine Small mg/dL (Negative); Glucose,Urine (UA) Negative (Negative); Ketones,Urine Negative (Negative); Nitrite,Urine Negative (Negative); Protein,Urine 30 MG/DL; RBC,Urine <1 /HPF (0-4); Urine Color Straw (Yellow); Urine Specific Gravity 1.005 (1.001-1.035); Urine Urobilinogen < 2.0 EU/DL (0.2-1.0); WBC,Urine <1 /HPF (0-6)
[2017-12-17 05:34] LABS: Basophils % 0.3 % (0.0-0.8); Eosinophils # 0.4 10*3/uL (0.0-0.87); Eosinophils % 5.6 % (0.00-10.9); Hemoglobin 10.5 GM/DL (14.0-18.0); Immature Granulocytes % 0.6 %; Immature Granulocytes Absolute 0.04 #; Lymphocytes # 2.4 10*3/uL (1.4-4.0); Lymphocytes % 34.4 % (21.2-54.2); Mean Corpuscular HGB Conc 33.9 GM/DL (32-36); Mean Corpuscular Hemoglobin 27 PG (27-34); Mean Corpuscular Volume 80.3 FL (87-102); Mean Platelet Volume 9.1 FL (9.6-12.0); Monocytes # 0.5 10*3/uL (0.11-0.8); Monocytes % 6.6 % (1.7-12.7); Neutrophils # 3.7 10*3/uL (1.4-7.4); Neutrophils % 52.5 % (38.7-73.9); Platelet Count 269 T/CUMM (130-400); Red Blood Count 3.86 MC/CUMM (3.8-5.5); Red Cell Distribution Width 14.4 % (9.3-17.3); White Blood Count 7.1 T/CUMM (4-12)
[2017-12-17 05:52] LABS: Osmolality,Calculated 283.4 MOS/KG (273-304); Potassium 3.5 MMOL/L (3.5-5.1)
[2017-12-17] MEDS: levETIRAcetam 250 MG TABLET PO SCH ×2 (10:04→21:45)
[2017-12-17] MEDS: PHENYTOIN ER 100 MG CAPSULE PO SCH ×2 (10:04→21:44)
[2017-12-17] MEDS: ASPIRIN EC 81 MG TABLET PO SCH (10:04)
[2017-12-17] MEDS: SERTRALINE 25 MG TABLET PO SCH (10:05)
[2017-12-17] MEDS: hydrOXYzine HCL 25 MG TABLET PO SCH ×3 (10:05→21:45)
[2017-12-17] MEDS: SPIRONOLACTONE 25 MG TABLET PO SCH (10:05)
[2017-12-17] MEDS: CLOPIDOGREL 75 MG TABLET PO SCH (10:05)
[2017-12-17] MEDS: GABAPENTIN 400 MG CAPSULE PO SCH ×3 (10:05→21:46)
[2017-12-17] MEDS: POTASSIUM CHLORIDE 20 MEQ TABLET PO PRN (10:06)
[2017-12-17] MEDS: CITALOPRAM 20 MG TABLET PO SCH (10:06)
[2017-12-17] MEDS: CARVEDILOL 3.125 MG TABLET PO SCH (10:06)
[2017-12-17] MEDS: FOLIC ACID 1 MG TABLET PO SCH (10:06)
[2017-12-17] MEDS: busPIRone 5 MG TABLET PO SCH ×2 (10:06→21:45)
[2017-12-17] MEDS: FUROSEMIDE 40 MG TABLET PO SCH ×2 (10:06→17:46)
[2017-12-17] MEDS: INSULIN LISPRO 100 UNIT/ML SUBCUT SCH ×4 (10:07→21:46)
[2017-12-17] MEDS: metOLazone 2.5 MG TABLET PO SCH (10:35)
[2017-12-17] MEDS: ACETIC ACID 0.25% IRRIGATION 1,000 ML BOTTLE IRRIG SCH (18:28)
[2017-12-17] MEDS: SKIN HEALING OINT (AQUAPHOR) 50 GM TUBE TOP SCH (18:29)
[2017-12-17] MEDS: GENTAMICIN 0.1% CREAM 15 GM TUBE TOP SCH (18:29)
[2017-12-17] MEDS: QUEtiapine 25 MG TABLET PO SCH (21:44)
[2017-12-17] MEDS: DONEPEZIL 10 MG TABLET PO SCH (21:45)
[2017-12-17] MEDS: TAMSULOSIN 0.4 MG CAPSULE PO SCH (21:45)
[2017-12-17] MEDS: VALSARTAN 80 MG TABLET PO SCH (21:45)
[2017-12-17] MEDS: CARVEDILOL 6.25 MG TABLET PO SCH (21:45)
[2017-12-17] MEDS: ROSUVASTATIN 20 MG TABLET PO SCH (21:46)
[2017-12-17] MEDS ORDERED: BACITRACIN OINT 0.9 GM PACK TOP SCH (22:30)
[2017-12-18 05:34] LABS: Basophils % 0.5 % (0.0-0.8); Eosinophils # 0.4 10*3/uL (0.0-0.87); Eosinophils % 4.8 % (0.00-10.9); Hematocrit 31.1 VOL% (42.0-52.0); Hemoglobin 10.7 GM/DL (14.0-18.0); Immature Granulocytes % 1.2 %; Immature Granulocytes Absolute 0.09 #; Lymphocytes # 2.9 10*3/uL (1.4-4.0); Lymphocytes % 37.7 % (21.2-54.2); Mean Corpuscular HGB Conc 34.4 GM/DL (32-36); Mean Corpuscular Hemoglobin 28 PG (27-34); Mean Corpuscular Volume 80.8 FL (87-102); Mean Platelet Volume 9.1 FL (9.6-12.0); Monocytes # 0.6 10*3/uL (0.11-0.8); Monocytes % 7.3 % (1.7-12.7); Neutrophils # 3.7 10*3/uL (1.4-7.4); Neutrophils % 48.5 % (38.7-73.9); Platelet Count 296 T/CUMM (130-400); Red Blood Count 3.85 MC/CUMM (3.8-5.5); Red Cell Distribution Width 14.4 % (9.3-17.3); White Blood Count 7.7 T/CUMM (4-12)
[2017-12-18 06:02] LABS: Calcium 8.6 MG/DL (8.5-10.1); Osmolality,Calculated 280.5 MOS/KG (273-304); Potassium 3.5 MMOL/L (3.5-5.1)
[2017-12-18] MEDS: ALBUTEROL/IPRATROPIUM 3 ML NEB RESP TX SCH ×2 (06:55→11:00)
[2017-12-18] MEDS: PHENYTOIN ER 100 MG CAPSULE PO SCH (08:59)
[2017-12-18] MEDS ORDERED: FINASTERIDE 5 MG TABLET PO SCH (09:00)
[2017-12-18] MEDS: CLOPIDOGREL 75 MG TABLET PO SCH (09:02)
[2017-12-18] MEDS: GABAPENTIN 400 MG CAPSULE PO SCH (09:02)
[2017-12-18] MEDS: FOLIC ACID 1 MG TABLET PO SCH (09:02)
[2017-12-18] MEDS: metOLazone 2.5 MG TABLET PO SCH (09:02)
[2017-12-18] MEDS: CITALOPRAM 20 MG TABLET PO SCH (09:03)
[2017-12-18] MEDS: FUROSEMIDE 40 MG TABLET PO SCH (09:03)
[2017-12-18] MEDS: SPIRONOLACTONE 25 MG TABLET PO SCH (09:04)
[2017-12-18] MEDS: busPIRone 5 MG TABLET PO SCH (09:04)
[2017-12-18] MEDS: ASPIRIN EC 81 MG TABLET PO SCH (09:04)
[2017-12-18] MEDS: TAMSULOSIN 0.4 MG CAPSULE PO SCH (09:05)
[2017-12-18] MEDS: hydrOXYzine HCL 25 MG TABLET PO SCH (09:06)
[2017-12-18] MEDS: CARVEDILOL 6.25 MG TABLET PO SCH (09:06)
[2017-12-18] MEDS: SERTRALINE 25 MG TABLET PO SCH (09:06)
[2017-12-18] MEDS: INSULIN LISPRO 100 UNIT/ML SUBCUT SCH (09:45)
[2017-12-18] MEDS: levETIRAcetam 250 MG TABLET PO SCH (10:49)
[2017-12-18] MEDS: ACETIC ACID 0.25% IRRIGATION 1,000 ML BOTTLE IRRIG SCH (10:49)
[2017-12-18] MEDS: VALSARTAN 80 MG TABLET PO SCH (10:49)
[2017-12-18] MEDS: SKIN HEALING OINT (AQUAPHOR) 50 GM TUBE TOP SCH (10:49)
[2017-12-18] MEDS: GENTAMICIN 0.1% CREAM 15 GM TUBE TOP SCH (10:49)
[2017-12-18 12:03] VITALS: BP 114/63
== END 2017-12-18 12:44 | disposition home health service (06) | DRG 174 ==
LOC: N.TELEN → SUATTDRO 20:12 → N.TELEN 20:39 → N.CC 12-12 16:41 → SUATTDRO 12-12 17:47 → N.TELEN 12-13 14:38
PROVIDERS: ADMIT Internal Medicine; ATTEND Internal Medicine
PROC: CLCCHCL (ICD-10-PCS; 2017-12-12 14:15)